=== PATIENT | male | born 1945 | race Caucasian/White ===

== ENCOUNTER 2022-08-25 08:09 | Day surgery (SDC) | payer MEDICARE, BC ==
[2022-08-23 14:14] VITALS: BMI 30.7
[2022-08-25 08:36] VITALS: TEMP 96.9
[2022-08-25] MEDS ORDERED: LACTATED RINGERS 1,000 ML IV SCH (08:39)
[2022-08-25] MEDS ORDERED: LIDOCAINE 1% (10MG/ML) FOR IV START INTRADERMA PRN (08:39)
[2022-08-25 08:58] LABS: Glucose,Whole Blood 107 mg/dL (70-110)
[2022-08-25] MEDS ORDERED: LIDOCAINE 2% INJ 20 MG/ML (2 ML VIAL) ONE (09:58)
[2022-08-25] MEDS ORDERED: PROPOFOL 10 MG/ML 20 ML VIAL IV ONE (09:58)
--- NOTE | 2022-08-25 10:27 | P.PCN ---
Date of Procedure: 08/25/22 Procedure(s) Performed: Brief history: Patient is a pleasant 6-year-old white male scheduled for an elective upper endoscopy as well as colonoscopy as a part of evaluation of epigastric pain, abdominal bloating and chronic diarrhea for the last 3 years duration. Procedure performed: Esophagogastroduodenoscopy with biopsy Colonoscopy with snare polypectomy and tattooing with Elisabeth ink Preoperative diagnosis: Epigastric pain/abdominal bloating Chronic diarrhea Anesthesia: MAC Procedure: After informed consent was obtained from the patient was brought into the endoscopy unit and IV sedation was administered by anesthesia under continuous monitoring. Initially upper endoscopy was done. The Olympus GF 160 video endoscope was inserted inserted into the mouth and esophagus intubated without any difficulty and was gradually advanced into the stomach and duodenum and carefully examined. The bulb and second part of the duodenum appeared normal. Biopsies were done from the duodenum to rule out celiac disease. The scope was then withdrawn into the stomach adequately insufflated with air and upon careful examination the antrum had mild gastritis and biopsies were done from this area. The body, cardia and fundus appeared normal. The scope was then withdrawn into the esophagus. The GE junction was located at 40 cm to the incisors. It appeared regular with no erythema erosions or ulcerations. Rest of the esophagus appeared normal. Patient tolerated the procedure well. At this time the patient continued to remain sedation. Initial digital rectal examination was normal. Olympus CF 160 video colonoscope was then inserted into the rectum and gradually advanced to the cecum without any difficulty. Careful examination was performed as the scope was gradually being withdrawn. The prep was excellent. The cecum, appeared normal. In the proximal ascending colon just above the ileocecal valve there was a 3 cm broad-based polypoid lesion identified which was partially removed by snare polypectomy and because of suspicion for neoplasia I did not perform complete polypectomy. Instead performed tattooing with Elisabeth ink. On a 50% the polyp was removed. The rest of the ascending colon, transverse colon, descending colon, sigmoid colon and rectum appeared normal. Retroflexion was performed in the rectum and no lesions were noted. Patient tolerated the procedure well. Impression: 1. Upper endoscopy revealed mild antral gastritis but no evidence of esophagitis or peptic 2. Colonoscopy revealed 3 cm broad-based ascending colon polypoid lesion status post partial piecemeal snare polypectomy followed by tattooing with Elisabeth ink Recommendations: Findings of this examination were discussed with the patient as well as as family. He was advised to follow with the biopsy results and he will be seen in the office in one week.
[2022-08-25 10:34] VITALS: RESP 16
[2022-08-25 10:53] VITALS: PULSE 69
[2022-08-25 11:15] VITALS: BP 137/85
== END 2022-08-25 11:27 | disposition home or self-care (01) ==
LOC: ORWHC2ENDO 08:09
PROVIDERS: ATTEND Internal Medicine Gastroenterology
DX: K29.50 Unspecified chronic gastritis without bleeding (principal); K63.5 Polyp of colon
CPT/HCPCS: 88305; 45385; 43239; 44404; J2704; J2001

== ENCOUNTER → 2022-09-14 | Outpatient (CLI) | payer MEDICARE, BC ==
[2022-09-14 18:25] LABS: Basophils # (A) 0.05 X 10*3/uL (0.00-0.10); Basophils % (A) 0.8 %; Eosinophils # (A) 0.18 X 10*3/uL (0.04-0.35); HCT 41.1 % (39.6-50.0); HGB 13.5 g/dL (13.0-17.0); Immature Grans, Automated 0.3 %; Lymphocytes # (A) 1.79 X 10*3/uL (0.90-5.00); Lymphocytes % (A) 30.1 %; MCHC 32.8 g/dL (32.0-37.0); MCV 88.4 fL (80.0-97.0); Mean Platelet Volume 10.5 fL (9.5-12.2); Monocytes # (A) 0.52 X 10*3/uL (0.20-1.00); Monocytes % (A) 8.8 %; NRBC Per 100 WBC 0 /100 WBCS (0.0-0.0); Neutrophils # (A) 3.38 X 10*3/uL (1.80-7.70); Platelet Count 212 X 10*3/uL (140-440); RBC 4.65 X 10*6/uL (4.40-5.60); RDW 13.3 % (11.5-14.5); WBC 5.94 X 10*3/uL (4.50-10.00)
[2022-09-14 18:29] LABS: African American GFR (CKD) 68.1 (60.0-200.0); Albumin 4.3 g/dL (3.8-4.9); Albumin/Globulin Ratio 1.54 (1.60-3.17); Anion Gap 9.8 mmol/L (10.00-18.00); BUN/Creat Ratio 17.5 Ratio (12.00-20.00); Calcium 9.3 mg/dL (8.7-10.3); Carbon Dioxide 23.2 mmol/L (20.0-27.5); Globulin 2.8 g/dL (1.6-3.3); Non-African American GFR(CKD) 58.8 (60.0-200.0); Potassium 5.1 mmol/L (3.5-5.5); Total Bilirubin 0.3 mg/dL (0.30-1.20); Total Protein 7.1 g/dL (6.2-8.2)
== END | disposition home or self-care (01) ==
LOC: LABWHC1 12:35
PROVIDERS: ATTEND Surgery Plastic and Reconstructive Surgery
DX: C18.2 Malignant neoplasm of ascending colon (principal); I11.9 Hypertensive heart disease without heart failure
CPT/HCPCS: 36415; 80053; 82378; 85025; 93005

== ENCOUNTER → 2022-10-22 | Outpatient (CLI) | payer MEDICARE, BC ==
[2022-10-22 18:38] LABS: HCT 42.7 % (39.6-50.0); HGB 13.7 g/dL (13.0-17.0); MCH 28.8 pg (27.0-32.0); MCHC 32.1 g/dL (32.0-37.0); MCV 89.7 fL (80.0-97.0); Mean Platelet Volume 10.9 fL (9.5-12.2); NRBC Per 100 WBC 0 /100 WBCS (0.0-0.0); Platelet Count 227 X 10*3/uL (140-440); RBC 4.76 X 10*6/uL (4.40-5.60); RDW 13.6 % (11.5-14.5)
[2022-10-22 18:46] LABS: African American GFR (CKD) 56.6 (60.0-200.0); Albumin 4.6 g/dL (3.8-4.9); Albumin/Globulin Ratio 1.59 (1.60-3.17); Anion Gap 13.8 mmol/L (10.00-18.00); BUN/Creat Ratio 24.86 Ratio (12.00-20.00); Blood Urea Nitrogen 34.8 mg/dL (9.0-27.0); Calcium 9.5 mg/dL (8.7-10.3); Carbon Dioxide 21.1 mmol/L (20.0-27.5); Globulin 2.9 g/dL (1.6-3.3); Non-African American GFR(CKD) 48.8 (60.0-200.0); Potassium 4.5 mmol/L (3.5-5.5); Total Bilirubin 0.4 mg/dL (0.30-1.20); Total Protein 7.4 g/dL (6.2-8.2)
== END | disposition home or self-care (01) ==
LOC: LABWHC1 14:09
PROVIDERS: ATTEND Surgery Plastic and Reconstructive Surgery
DX: C18.2 Malignant neoplasm of ascending colon (principal)
CPT/HCPCS: 36415; 80053; 85027

== ENCOUNTER 2022-10-28 09:49 | Inpatient (IN) | payer MEDICARE, BC ==
--- NOTE | 2022-10-28 06:09 | P.GSHP ---
History of Present Illness H&P Date: 10/28/22 CHIEF COMPLAINT: Colon cancer HISTORY OF PRESENT ILLNESS: The patient is a 77-year-old male with recently diagnosed with colon cancer in the past 2 months. He underwent metastatic work- up. He presents for surgical colon resection with robotic assisted approach and endoscopic management with tattoo. PAST MEDICAL HISTORY: Please see list. PAST SURGICAL HISTORY: Please see list. MEDICATIONS: Please see list. ALLERGIES: Please see list. SOCIAL HISTORY: No illicit drug use FAMILY HISTORY: No reports of Crohn disease or ulcerative colitis. REVIEW OF ORGAN SYSTEMS: CONSTITUTIONAL: Denies any fever or chills. HEENT: Denies any trouble with vision or nosebleeds. No difficulty swallowing. LYMPHATIC: The patient denies any lumps and bumps around the neck. ENDOCRINE: Denies any thyroid disorders. Has blood sugar glucose intolerance. RESPIRATORY: Denies pneumonia. Denies any troubles with breathing or dyspnea on exertion. CARDIOVASCULAR: Denies any chest pain, palpitations, or recent heart attacks. Saw inspector and cleared for surgery. GASTROINTESTINAL: As above. GENITOURINARY: Has increased urinary frequency. MUSCULOSKELETAL: Has back pain, stiffness, joint arthritis. NEUROLOGIC: Denies any numbness or tingling along the distal extremities. No seizure disorders or headaches. PSYCHIATRIC: Denies depression or suidical ideation. HEMATOLOGIC: Denies any abnormal bleeding or bruising. PHYSICAL EXAM: VITAL SIGNS: Stable GENERAL: Well-developed pleasant in no acute distress. HEENT: No scleral icterus. Extraocular movements grossly intact. Moist buccal mucosa. NECK: Supple without lymphadenopathy. CHEST: Unlabored respirations. Equal bilateral excursions. CARDIOVASCULAR: Regular rate and rhythm. Distal 2+ pulses. ABDOMEN: Soft, nontender, nondistended. MUSCULOSKELETAL: No clubbing, cyanosis, or edema. NERUO: Regular 2-12 grossly intact. PSYCH: Alert and oriented to person place and time. LABS: Reviewed. Hgb normal. CEA normal. ASSESSMENT: 1. Colon cancer, ascending. PLAN: 1. Benefits and risks of surgical intervention right hemicolectomy reviewed in detail. Robotic-assisted approach was also described. 2. Enhanced colon recovery program initiated. 3. DVT prophylaxis. 4. Antibiotic prophylaxis. 5. Endoscopic management via colonoscopy with tattoo pre-operatively described. 6. He is elevated risk with diabetes, heart disease, recent use of NSAIDs and tumeric that increases risk of bleeding sandy-operative. Past Medical History Past Medical History: Cancer, Diabetes Mellitus, Hyperlipidemia, Hypertension, Osteoarthritis (OA) Additional Past Medical History / Comment(s): GOUT, HX COLON POLYPS.,cancerous LOOSE STOOLS. History of Any Multi-Drug Resistant Organisms: None Reported Past Surgical History: Adenoidectomy, Joint Replacement, Tonsillectomy Additional Past Surgical History / Comment(s): TOTAL RIGHT KNEE, NASAL SURGERY, FISSURE AND FISTULA SURGERY X2, CARPAL TUNNEL X3., COLONOSCOPY. Past Anesthesia/Blood Transfusion Reactions: No Reported Reaction Smoking Status: Former smoker - Past Family History Brother(s) Family Medical History: Cancer Medications and Allergies Home Medications Medication Instructions Recorded Confirmed Type Atorvastatin [Lipitor] 20 mg PO DAILY 08/23/22 10/26/22 History Black Srivastava 1,000 mg PO DAILY 08/23/22 10/26/22 History Celecoxib [CeleBREX] 200 mg PO DAILY 08/23/22 10/26/22 History Cholecalciferol [Vitamin D3 (25 50 mcg PO DAILY 08/23/22 10/26/22 History Mcg = 1000 Iu)] Gabapentin 600 mg PO DAILY 08/23/22 10/26/22 History Turmeric Root Extract [Turmeric] 1,000 mg PO DAILY 08/23/22 10/26/22 History amLODIPine [Norvasc] 5 mg PO DAILY 08/23/22 10/26/22 History lisinopriL 40 mg PO DAILY 08/23/22 10/26/22 History sitaGLIPtin [Januvia] 100 mg PO DAILY 08/23/22 10/26/22 History Gluc/Chond/MSM/D3/Hyal/Ramy Bor 1 tab PO DAILY 10/26/22 10/26/22 History [Move Free Plus MSM-Vit D3 Tab] Allergies Allergy/AdvReac Type Severity Reaction Status Date / Time tetracycline Allergy Unknown Unknown Verified 10/26/22 10:20 Childhood
[~2022-10-28 09:49] MED LIST: Antibiotics per Pharmacy 1 EACH MISC MISCELLANE PRN; PEG 3350 (420 GM/BTL) + LYTES 4,000 ML BOTTLE PO ONE
[2022-10-28] MEDS: LACTATED RINGERS 1,000 ML IV SCH (10:12)
[2022-10-28] MEDS ORDERED: PROPOFOL 10 MG/ML 20 ML VIAL IV ONE (10:46)
[2022-10-28 10:52] LABS: Basophils % (A) 1 %; Eosinophils # (A) 0.1 k/uL (0-0.7); Eosinophils % (A) 2 %; HCT 43.5 % (39.0-53.0); HGB 14.7 gm/dL (13.0-17.5); Lymphocytes # (A) 1.9 k/uL (1.0-4.8); Lymphocytes % (A) 30 %; MCHC 33.8 g/dL (31.0-37.0); MCV 88.7 fL (80.0-100.0); Monocytes # (A) 0.4 k/uL (0-1.0); Monocytes % (A) 6 %; Neutrophils # (A) 3.6 k/uL (1.3-7.7); Neutrophils % (A) 58 %; Platelet Count 216 k/uL (150-450); RDW 13.4 % (11.5-15.5); WBC 6.2 k/uL (3.8-10.6)
[2022-10-28 11:02] LABS: Prothrombin Time 10.3 sec (9.0-12.0)
[2022-10-28 11:18] LABS: Albumin 4.6 g/dL (3.5-5.0); Calcium 9.2 mg/dL (8.4-10.2); Potassium 4.4 mmol/L (3.5-5.1); Total Bilirubin 0.6 mg/dL (0.2-1.3); Total Protein 7.6 g/dL (6.3-8.2)
[2022-10-28] MEDS ORDERED: LACTATED RINGERS 1,000 ML IV ONE (11:38)
[2022-10-28] MEDS: metroNIDAZOLE 500 MG TAB PO SCH ×2 (13:46→14:59)
[2022-10-28] MEDS: NEOMYCIN 500 MG TAB PO SCH ×2 (13:46→14:59)
[2022-10-28] MEDS ORDERED: metroNIDAZOLE 500 MG TAB PO SCH (15:00)
[2022-10-28] MEDS ORDERED: SODIUM CHLORIDE 0.9% 2,000 ML IV ONE (15:15)
[2022-10-28] MEDS ORDERED: LACTULOSE 20 GM/30 ML CUP PO ONE (15:50)
[2022-10-28] MEDS ORDERED: MAGNESIUM HYDROXIDE 2,400 MG/10 ML CUP PO STA (15:51)
--- NOTE | 2022-10-28 15:58 | P.PCN ---
Date of Procedure: 10/28/22 Description of Procedure: PREOPERATIVE DIAGNOSIS: Colon cancer POSTOPERATIVE DIAGNOSIS: Colon cancer Ascending colon polyp Poor prep OPERATION: Colonoscopy to the ileocecal valve and appendiceal orifice, cecum Colonoscopy with hot snare polypectomy Colonoscopy with submucosal injection of Elisabeth ink, 5 mL SURGEON: Tamra Fox MD. ANESTHESIA: MAC. INDICATIONS: The patient is an 77-year-old male who presents with recent diagnosis of colon cancer. He presents for endoscopic marking and assessment robotic colectomy. Benefits and risks were described and informed consent was obtained. DESCRIPTION OF PROCEDURE: The patient had undergone Sutab prep. The patient had been brought into the operating room and laid in the left lateral decubitus position. After adequate intravenous sedation, the rectum was examined with 2% lidocaine jelly. The prostate was unremarkable. External hemorrhoids were encountered. the prostate was unremarkable. The rectal tone was within normal limits. No lesions were palpated in the rectal vault. An Olympus colonoscope was advanced until the cecum, ileocecal valve and appendiceal orifice were clearly viewed. The prep was poor with semisolid stool throughout. Colonic polyp 2 cm was identified at the cecum proximal to the ileocecal valve. Snare technique was performed with incomplete resection and injection of Elisabeth 8, 5 mL. Focal colitis cannot be excluded due to extremely poor prep. Retroflexion of the scope demonstrated grade 2 internal hemorrhoids without active bleeding or inflammation. The colon was desufflated. The patient had tolerated the procedure well. Withdrawal time was over 6 minutes. FINDINGS: Aronchick preparation quality scale 4 (1-5) Internal hemorrhoids, grade 2 External hemorrhoids, grade 2 No arteriovenous malformations cannot be excluded due to poor prep Sigmoid diverticulosis cannot be excluded due to poor prep Removal of 1 polyp: - Snare polypectomy cecum, 20 mm tubulovillous adenoma, with incomplete resection - Injection of Elisabeth ink 5 mL some mucosal at cecum at incomplete resection site Focal colitis cannot be excluded due to poor prep RECOMMENDATIONS: With pathology positive for colon cancer, colon resection described. Recommend extended bowel prep
--- NOTE | 2022-10-28 15:58 | P.PN ---
Progress Note - Text Progress Note Date: 10/28/22 Patient revisited and confirms that he took Imodium instead of bowel prep. As a result, patient had very poor bowel prep. Addition of lactulose, milk of magnesia and GoLYTELY prep for colon resection tomorrow. Oral neomycin and Flagyl started.
[2022-10-28] MEDS ORDERED: TAMSULOSIN 0.4 MG CAP.ER.24H PO STA (15:59)
[2022-10-28] MEDS ORDERED: TEMAZEPAM 15 MG CAP PO ONE (21:00)
[2022-10-28] MEDS: SODIUM CHLORIDE 0.9% 1,000 ML IV SCH (22:39)
[2022-10-28] MEDS ORDERED: NEOMYCIN 500 MG TAB PO ONE (23:00)
[2022-10-28] MEDS ORDERED: metroNIDAZOLE 500 MG TAB PO ONE (23:00)
[2022-10-29] MEDS: SODIUM CHLORIDE 0.9% 1,000 ML IV SCH ×4 (02:49→22:30)
[2022-10-29] MEDS ORDERED: HEPARIN SODIUM,PORCINE/PF 5,000 UNIT/0.5 ML SYRINGE SQ PRN (06:09)
[2022-10-29 06:14] LABS: Basophils % (A) 1 %; Eosinophils # (A) 0.1 k/uL (0-0.7); Eosinophils % (A) 2 %; HCT 40.2 % (39.0-53.0); HGB 13.3 gm/dL (13.0-17.5); Lymphocytes # (A) 1.3 k/uL (1.0-4.8); Lymphocytes % (A) 28 %; MCH 29.6 pg (25.0-35.0); MCHC 33.1 g/dL (31.0-37.0); MCV 89.5 fL (80.0-100.0); Mean Platelet Volume 8.3; Monocytes # (A) 0.3 k/uL (0-1.0); Monocytes % (A) 6 %; Neutrophils # (A) 2.6 k/uL (1.3-7.7); Neutrophils % (A) 59 %; Platelet Count 170 k/uL (150-450); RBC 4.49 m/uL (4.30-5.90); RDW 13.8 % (11.5-15.5); WBC 4.5 k/uL (3.8-10.6)
[2022-10-29 06:29] LABS: ALT 21 U/L (4-49); AST 22 U/L (17-59); African American GFR (CKD) 83 (>60 ml/min/1.73 sqM); Albumin 3.4 g/dL (3.5-5.0); Albumin/Globulin Ratio 1.4; Alkaline Phosphatase 43 U/L (38-126); Anion Gap 5 mmol/L; Blood Urea Nitrogen 9 mg/dL (9-20); Calcium 8.3 mg/dL (8.4-10.2); Carbon Dioxide 21 mmol/L (22-30); Chloride 115 mmol/L (98-107); Globulin 2.5 g/dL; Glucose 90 mg/dL (74-99); Non-African American GFR(CKD) 72 (>60 ml/min/1.73 sqM); Potassium 4.4 mmol/L (3.5-5.1); Sodium 141 mmol/L (137-145); Total Bilirubin 0.4 mg/dL (0.2-1.3); Total Protein 5.9 g/dL (6.3-8.2)
[2022-10-29] MEDS ORDERED: ALVIMOPAN 12 MG CAPSULE PO PRN (07:00)
[2022-10-29] MEDS ORDERED: IOPAMIDOL CONTRAST (ORAL USE) VIAL PO PRN (07:00)
[2022-10-29] MEDS ORDERED: ACETAMINOPHEN TAB 500 MG TAB PO PRN (07:00)
[2022-10-29] MEDS ORDERED: metroNIDAZOLE-NS PMX 500 MG in SALINE 1 100ML.BAG IVPB ONE ×2 (07:00→17:30)
[2022-10-29] MEDS: LINAGLIPTIN 5 MG TABLET PO SCH (08:55)
[2022-10-29] MEDS: amLODIPine 5 MG TAB PO SCH (08:55)
[2022-10-29] MEDS: GABAPENTIN 300 MG CAP PO SCH (08:55)
[2022-10-29] MEDS: lisinopriL 20 MG TAB PO SCH (08:55)
[2022-10-29] MEDS: LACTATED RINGERS 1,000 ML IV SCH (10:43)
--- NOTE | 2022-10-29 10:52 | CT ---
EXAMINATION TYPE: CT abdomen pelvis w con CT DLP: 1089.1 mGycm, Automated exposure control for dose reduction was used. DATE OF EXAM: 10/29/2022 10:30 AM COMPARISON: None CLINICAL INDICATION:Male, 77 years old with history of Abdominal pain, colon cancer; Colon CA TECHNIQUE: Standard CT of the abdomen and pelvis following the administration of 70 cc of Isovue 30 0 IV contrast material. Coronal and sagittal reformats were performed. FINDINGS: LOWER CHEST: 3 mm right lower lobe subpleural pulmonary nodule (series 4, image 14). ABDOMEN LIVER: Unremarkable GALLBLADDER AND BILE DUCTS: Unremarkable. PANCREAS: Unremarkable. SPLEEN: Unremarkable. ADRENAL GLANDS: Unremarkable. KIDNEYS AND URETERS: No evidence of hydronephrosis or renal calculus. The kidneys enhance symmetrical ly without suspicious focal lesion. Circumaortic left renal vein. PELVIS BLADDER: Incompletely distended but grossly unremarkable. REPRODUCTIVE: Unremarkable. ABDOMEN & PELVIS STOMACH AND BOWEL: Stomach and duodenum are unremarkable. No focal wall thickening or surrounding inf lammatory changes. No significant diverticulosis. Evaluation is limited due to lack of oral contrast. No evidence of bowel obstruction. The appendix is not visualized however there is no significant inf lammatory changes within the right lower quadrant. PERITONEUM: No evidence of pneumoperitoneum. Trace free fluid in the pelvis. VASCULATURE: Mild atherosclerotic calcifications are present throughout the abdominal aorta and its b ranches. No evidence of aortic aneurysm. MUSCULOSKELETAL: No acute osseous abnormalities. There are no aggressive osseous lesion. Levoscolioti c curvature of the lumbar spine. Grade 1/2 anterolisthesis of L4 on L5 with bilateral pars defects. M ultilevel degenerative changes of the visualized spine. LYMPH NODES: No gross evidence for lymphadenopathy. SOFT TISSUE/ABDOMINAL WALL: Small fat filled umbilical hernia. Mild bilateral facet of the normal her nias. IMPRESSION: 1. Nonspecific trace free fluid in the pelvis otherwise no acute process. 2. Reported colon cancer is not identifiable on this examination. No definitive focal wall thickening or surrounding inflammatory changes. Evaluation is limited due to lack of IV contrast. 3. Subpleural 3 mm right lower lobe pulmonary nodule. 4. Grade 1/2 anterolisthesis of L4 on L5 with bilateral pars defects.
--- NOTE | 2022-10-29 13:47 | P.PN ---
Subjective Progress Note Date: 10/29/22 CHIEF COMPLAINT: Colon cancer HISTORY OF PRESENT ILLNESS: The patient is a 77-year-old male recently diagnosed with ascending colon cancer. He underwent bowel prep. He feels much better today. Reports his bowel habits are now clear versus poor prep yesterday. ROS: No reports of nausea and vomiting. No fevers or chills. No new chest pain. No productive sputum PHYSICAL EXAM: VITAL SIGNS: Reviewed CONSTITUTIONAL: Well developed and in no acute distress. EYES: Conjuctivae without sclera icterus. Extraocular movements grossly intact. HEAD, EARS, NOSE, THROAT: Moist buccal mucosa. Head is atraumatic, normocephalic. Hears conversational speech. No nasal drainage. RESPIRATORY: Non-labored respirations and equal bilateral excursions. CARDIOVASCULAR: Palpable 2+ radial pulses. ABDOMEN: No peritonitis MUSCULOSKELETAL: No gross deformity of the lower extremities noted. No clubbing. No cyanosis. SKIN: Good skin turgor. Well perfused. NEUROLOGIC: Cranial nerves II through XII grossly intact. No focal or lateralizing signs. PSYCH: Appropriate affect. Alert and oriented to person, place and time. CLINICAL LABS: Reviewed. CBC within normal limits. ASSESSMENT: 1. Ascending colon cancer PLAN: 1. CT of the abdomen and pelvis ordered for metastatic workup for colon cancer. 2. Overall, prep improved for right colectomy. 3. Surgery including postoperative recovery reviewed. Objective - Vital Signs Vital signs: Vital Signs Temp 97.8 F 10/29/22 05:00 Pulse 71 10/29/22 08:59 Resp 16 10/29/22 05:00 BP 147/81 10/29/22 08:59 Pulse Ox 97 10/29/22 05:00 FiO2 Intake & Output 10/28/22 10/29/22 10/29/22 18:59 06:59 18:59 Intake Total 1200 590 Balance 1200 590 Weight 95 kg Intake: IV 1200 Oral 590 Other: Voiding Method Toilet # Voids 3 # Bowel Movements 2 - Labs CBC & Chem 7: 10/29/22 05:53 10/29/22 05:53 Labs: Abnormal Lab Results - Last 24 Hours (Table) 10/28/22 10/29/22 Range/Units 10:25 05:53 Chloride 109 H 115 H (98-107) mmol/L Carbon Dioxide 21 L 21 L (22-30) mmol/L Calcium 8.3 L (8.4-10.2) mg/dL Total Protein 5.9 L (6.3-8.2) g/dL Albumin 3.4 L (3.5-5.0) g/dL
[2022-10-29] MEDS ORDERED: IV FLUID CONTINUATION 1,000 ML IV ONE (14:31)
[2022-10-29 14:35] LABS: Glucose,Whole Blood 90 mg/dL (70-110)
[2022-10-29] MEDS: ONDANSETRON 4 MG/2 ML VIAL IVP PRN (14:36)
--- NOTE | 2022-10-29 15:10 | P.ANPRN ---
Procedure Note - Anesthesia - Nerve Block Performed Bilateral Erector Spinae Time Out Performed: Yes (15:00) Date of Procedure: 10/29/22 Procedure Start Time: 15:00 Procedure Stop Time: 15:07 Location of Patient: PreOp Indication: Acute Post-Operative Pain, Requested by Surgeon (Dr Fox) Sedation Type: Sedate with meaningful contact maintained Preparation: Sterile Prep Position: Prone Catheter: None Needle Types: Pajunk Needle Gauge: 21 Ultrasound used to visualize needle placement: Yes Ultrasound used to observe medication spread: Yes Injectate: 0.5% Ropivacaine (see comment for volume) (18cc +Decadron 4mg each side) Blood Aspirated: No Pain Paresthesia on Injection Noted: No Resistance on Injection: Normal Image Stored and Saved: Yes Events: Uneventful and Well Tolerated
[2022-10-29] MEDS ORDERED: MIDAZOLAM 2 MG/2 ML VIAL IVP ONE (15:17)
[2022-10-29] MEDS ORDERED: BUPIVACAIN-EPI 0.25%-1:200,000 30 ML VIAL SQ ONE ×2 (16:32→17:06)
[2022-10-29] MEDS ORDERED: SODIUM CHLORIDE 0.9% 50 ML with ceFAZolin 2,000 MG IV ONE ×2 (16:35)
[2022-10-29] MEDS ORDERED: LACTATED RINGERS 1,000 ML IV ONE ×2 (17:34→19:32)
[2022-10-29 20:15] LABS: Glucose,Whole Blood 146 mg/dL (70-110)
[2022-10-29] MEDS ORDERED: BENZOCAINE/MENTHOL LOZENG 1 EACH LOZENGE MUCOUS MEM PRN (20:30)
[2022-10-29] MEDS ORDERED: METOCLOPRAMIDE 5 MG/ML 2 ML VIAL IVP PRN (20:30)
[2022-10-29] MEDS ORDERED: HYDROmorphone 1 MG/ML 1 ML SYRINGE IVP PRN (20:30)
[2022-10-29] MEDS ORDERED: SODIUM CHLORIDE 0.9% 1,000 ML IV ONE (20:34)
[2022-10-29] MEDS ORDERED: NALOXONE 0.4 MG/ML 1 ML VIAL IV PRN (20:37)
--- NOTE | 2022-10-29 20:37 | P.OP ---
Date of Procedure: 10/29/22 Description of Procedure: SURGEON: MERCY VERNON MD Preoperative Diagnosis: 1. Malignant colon polyp at ascending colon Postoperative Diagnosis: 1. Malignant colon polyp at ileocecal valve Procedure(s) Performed: Robot-assisted daVinci Xi laparoscopic ileocolectomy with right hemicolectomy Anesthesia: GETA, local, regional Estimated Blood Loss (ml): 10 Pathology: other (Right colon) Condition: stable SPECIMENS REMOVED: terminal ileum, appendix, and right colon en bloc. COMPLICATIONS: None. Disposition: floor Operative Findings: 1. Tumor involving the cecum including ileocecal valve with proximal resection 5 cm distal section 5 cm 2. Anastomosis proximal to the hepatic flexure 3. No evidence of peritoneal metastatic deposits or liver involvement 4. Incision is made along the upper abdomen with specimen extraction had left upper quadrant INDICATIONS: The patient is a 77-year-old male with personal history of malignant colorectal polyp on the ileocecal valve. Surgical intervention with colon resection was described in detail. Benefits and risks, including infection, open surgery possibility for additional surgery was discussed at length. Informed consent was obtained. All questions of the patient and family were answered. DESCRIPTION: Earlier the patient had undergone a bowel prep using the enhanced colon recovery program. The patient was transferred to the operating room and placed in supine position. After general anesthetic, a miles catheter was placed. The abdomen was then prepped and draped in standard sterile fashion as Ioban was placed along the abdomen to minimize any contamination of skin floor. After a timeout protocol was performed, attention was then brought to the left upper quadrant whereby a 0 degree 5 mm laparoscopic trocar entry was performed. The abdominal cavity was entered and insufflated to 15 mmHg pressure, which he tolerated well. Diagnostic laparoscopy demonstrated no injury to bowel, viscera or mesentery. No metastatic or peritoneal deposits were identified. The liver was unremarkable. The tumor was identified along the cecum with hypervascularity. Next a robotic 8-mm trocar was placed along the right lateral abdominal wall, 15-cm superior from the pelvis. A 8 mm port was placed along the right upper quadrant and another 8-mm port along the epigastrium. Ports were placed 8 cm apart from each other including 15-20 cm away from the target anatomy of the right pelvis. The 5-mm port was exchanged for a 12 mm robotic port. The patient was then placed in Trendelenburg position, at least 14. The robotic da Sean XI system was primed and docked from the left side of the patient. Using atraumatic graspers and vessel sealer, the robotic system was docked and primed as described. Instruments were interchanged by the assistant professor surgical technology including scissors, needle buggy driver, robotic stapler and vessel sealer. Next, attention was brought to identify the cecum. A stay suture using 0 silk was placed along the anterior serosa of the ascending colon including along the terminal ileum. The appendix was identified and used as a handle during the case. The terminal ileum and ascending colon mesentery was mobilized using a vessel sealer whereby the colon was marked and tagged. Using robot stapler 45 mm white load, the distal ileum was divided 5 cm proximal to the ileocecal valve. The mesentery of the ascending colon was mobilized towards the midline using a vessel sealer. Next, the ascending colon was divid ed using the robotic stapler 45 mm blue loads. The rest of the colon mesentery was mobilized using vessel sealer including using blunt dissection. The vascular pedicle of the ileocolic artery was controlled using 2 large PLASTIC clips distally and then divided proximally using a vessel sealer. The proximal colon and distal ileum was brought in a side to side anastomotic fashion after placing interrupted sutures along the proposed gabby-lumen using 3-0 silk. A colotomy and enterotomy was prepared along both limbs along the antimesenteric border. The 8 mm trocar along the right upper quadrant was exchanged for a 12 mm port for stapler. Next, 45 mm blue stapler loads were fired to create the gabby-lumen. The gabby-lumen was reapproximated using 3-0 silk followed by 45 mm blue load for closure of the enterostomy. All needles were removed from the abdominal cavity. The robot was undocked. I re-scrubbed into the case. Via the 12 mm port of the left upper quadrant, the right colon was removed using a 15-mm Endo Catch bag after widening the skin incision to 3-cm. All sponges were removed from the abdominal cavity. No contamination had occurred throughout this portion of the case. The fascial defect was oversewn using 0 Vicryl and Jagjit's. Next all pneumoperitoneum was evacuated from the abdominal cavity. The 8-mm trocar sites were reapproximated using 4-0 Monocryl in an interrupted subcuticular fashion. Local anesthetic was infiltrated to all wounds for postop analgesia. All incisions were also cleansed with diluted hydrogen peroxide. An Optifoam surgical dressing was placed over the left upper quadrant incision of the colon extraction site. Dermabond was applied to the rest of the skin incisions. The patient had tolerated the procedure well. The patient was extubated successfully. Intraoperative photos were reviewed with the patient's family who were overall pleased with the level of care. The patient was transferred to the postanesthesia care unit in stable condition.
[2022-10-29] MEDS: D5-0.45% NACL WITH KCL 20MEQ/L 1,000 ML IV SCH (21:21)
[2022-10-29] MEDS: HEPARIN SODIUM,PORCINE/PF 5,000 UNIT/0.5 ML SYRINGE SQ SCH (21:22)
[2022-10-29] MEDS: fentaNYL PCA 500 MCG/50 ML BAG IV PRN (21:46)
[2022-10-29] MEDS ORDERED: SIMETHICONE 40 MG/0.6 ML DROPS 2,000 MG/30 ML BOTTLE PO SCH (22:00)
[2022-10-29] MEDS: metroNIDAZOLE-NS PMX 500 MG in SALINE 1 100ML.BAG IVPB SCH (23:56)
[2022-10-30] MEDS: D5-0.45% NACL WITH KCL 20MEQ/L 1,000 ML IV SCH ×3 (05:24→23:39)
[2022-10-30] MEDS: metroNIDAZOLE-NS PMX 500 MG in SALINE 1 100ML.BAG IVPB SCH ×4 (05:26→23:39)
[2022-10-30] MEDS: LACTATED RINGERS 1,000 ML IV SCH (06:34)
[2022-10-30] MEDS: SODIUM CHLORIDE 0.9% 1,000 ML IV SCH (07:46)
[2022-10-30] MEDS: GABAPENTIN 300 MG CAP PO SCH (08:07)
[2022-10-30] MEDS: ALVIMOPAN 12 MG CAPSULE PO SCH ×2 (08:07→21:06)
[2022-10-30] MEDS: TAMSULOSIN 0.4 MG CAP.ER.24H PO SCH (08:07)
[2022-10-30] MEDS: amLODIPine 5 MG TAB PO SCH (08:07)
[2022-10-30] MEDS: LINAGLIPTIN 5 MG TABLET PO SCH (08:08)
[2022-10-30] MEDS: lisinopriL 20 MG TAB PO SCH (08:08)
[2022-10-30] MEDS: HEPARIN SODIUM,PORCINE/PF 5,000 UNIT/0.5 ML SYRINGE SQ SCH ×2 (08:08→21:06)
[2022-10-30] MEDS: SIMETHICONE 40 MG/0.6 ML DROPS 2,000 MG/30 ML BOTTLE PO SCH ×4 (09:21→23:40)
[2022-10-30 09:24] LABS: Basophils # (A) 0.01 X 10*3/uL (0.00-0.10); Basophils % (A) 0.1 %; Eosinophils # (A) 0 X 10*3/uL (0.04-0.35); Eosinophils % (A) 0 %; HCT 38.4 % (39.6-50.0); HGB 12.3 g/dL (13.0-17.0); Immature Grans, Automated 0.2 %; Lymphocytes # (A) 0.73 X 10*3/uL (0.90-5.00); Lymphocytes % (A) 8.7 %; MCH 29.6 pg (27.0-32.0); MCV 92.5 fL (80.0-97.0); Mean Platelet Volume 10.9 fL (9.5-12.2); Monocytes # (A) 0.54 X 10*3/uL (0.20-1.00); Monocytes % (A) 6.4 %; NRBC Per 100 WBC 0 /100 WBCS (0.0-0.0); Neutrophils # (A) 7.09 X 10*3/uL (1.80-7.70); Neutrophils % (A) 84.6 %; Platelet Count 185 X 10*3/uL (140-440); RBC 4.15 X 10*6/uL (4.40-5.60); RDW 13.7 % (11.5-14.5); WBC 8.39 X 10*3/uL (4.50-10.00)
[2022-10-30 10:53] LABS: African American GFR (CKD) 75.7 (60.0-200.0); Anion Gap 9.2 mmol/L (10.00-18.00); BUN/Creat Ratio 9.36 Ratio (12.00-20.00); Blood Urea Nitrogen 10.3 mg/dL (9.0-27.0); Calcium 8.2 mg/dL (8.7-10.3); Carbon Dioxide 19.8 mmol/L (20.0-27.5); Non-African American GFR(CKD) 65.3 (60.0-200.0); Potassium 4.8 mmol/L (3.5-5.5)
--- NOTE | 2022-10-30 11:14 | P.PN ---
Progress Note - Text Progress Note Date: 10/30/22 Patient is resting comfortably in his bed. He denies any significant abdominal pain. On exam vital signs are stable. Abdomen soft. Incision sites are clean dry tach. The prep patient has had no significant bowel function. Patient will will continue supportive care until bowel function returns.
[2022-10-30] MEDS: fentaNYL PCA 500 MCG/50 ML BAG IV PRN (11:16)
[2022-10-30] MEDS ORDERED: DEXTROSE 50% SYRINGE 50 ML IVP PRN ×2 (11:20)
--- NOTE | 2022-10-30 11:28 | P.CONS ---
History of Present Illness - Reason for Consult Consult date: 10/30/22 med management - History of Present Illness Patient is a 77-year-old male with history of recently diagnosed colon cancer, hypertension, dyslipidemia, diabetes presenting for elective colon surgery. He is status post ileocolectomy and right hemicolectomy. [facility] [place][note 2] has been consulted for medical management. Currently he denies any chest pain, shortness of breath, palpitations, lightheadedness. He has minimal abdominal pain around the incision site. He denies having any bowel movements or passing gas at the moment. He has not gotten out of bed, but sat at the edge of the bed today. He has a White catheter in place. Patient seen and examined at bedside. Pertinent positives and negatives as discussed in HPI, a complete review of systems was performed and all other systems are negative. Vital signs reviewed General: nontoxic, no distress, appears at stated age Derm: warm, dry Head: atraumatic, normocephalic, symmetric Eyes: EOMI, no lid lag, anicteric sclera, pupils equal round reactive to light ENT: Nose and ears atraumatic Neck: No thyromegaly, supple Mouth: no lip lesion, mucus membranes moist Cardiovascular: S1S2 reg, no murmur, no edema Lungs: clear to auscultation bilateral, no rhonchi, no rales, no wheeze, no accessory muscle use Abdominal: soft, nontender to palpation, no guarding, no appreciable organomegaly, his abdominal dressing, clean, dry, intact Ext: no gross muscle atrophy, muscle strength muscle strength 5 out of 5 in all 4 extremities, no contractures Neuro: CN II-XII grossly intact Psych: Alert, oriented, appropriate affect Assessment/Plan: Colon cancer Status post resection -DVT prophylaxis and pain management per surgery -Currently on clear liquids Chronic medical problems: Hypertension Dyslipidemia Diabetes - sliding scale insulin -Continue home medications Labs reviewed and stable. Thank you for allowing us to participate in the care of this pleasant patient. Do not hesitate to contact us with questions. Someone can be reached from the [facility] hospitalist group all hours of the day at [phone] or via [employer]. Past Medical History Past Medical History: Cancer, Diabetes Mellitus, Hyperlipidemia, Hypertension, Osteoarthritis (OA) Additional Past Medical History / Comment(s): GOUT, HX COLON POLYPS.,cancerous LOOSE STOOLS. History of Any Multi-Drug Resistant Organisms: None Reported Past Surgical History: Adenoidectomy, Joint Replacement, Tonsillectomy Additional Past Surgical History / Comment(s): TOTAL RIGHT KNEE, NASAL SURGERY, FISSURE AND FISTULA SURGERY X2, CARPAL TUNNEL X3., COLONOSCOPY. Past Anesthesia/Blood Transfusion Reactions: No Reported Reaction Smoking Status: Former smoker - Past Family History Brother(s) Family Medical History: Cancer Medications and Allergies Home Medications Medication Instructions Recorded Confirmed Type Atorvastatin [Lipitor] 20 mg PO DAILY 08/23/22 10/28/22 History Black Srivastava 1,000 mg PO DAILY 08/23/22 10/28/22 History Celecoxib [CeleBREX] 200 mg PO DAILY 08/23/22 10/28/22 History Cholecalciferol [Vitamin D3 (25 50 mcg PO DAILY 08/23/22 10/28/22 History Mcg = 1000 Iu)] Gabapentin 600 mg PO DAILY 08/23/22 10/28/22 History Turmeric Root Extract [Turmeric] 1,000 mg PO DAILY 08/23/22 10/28/22 History amLODIPine [Norvasc] 5 mg PO DAILY 08/23/22 10/28/22 History lisinopriL 40 mg PO DAILY 08/23/22 10/28/22 History sitaGLIPtin [Januvia] 100 mg PO DAILY 08/23/22 10/28/22 History Gluc/Chond/MSM/D3/Hyal/Ramy Bor 1 tab PO DAILY 10/26/22 10/28/22 History [Move Free Plus MSM-Vit D3 Tab] Allergies Allergy/AdvReac Type Severity Reaction Status Date / Time tetracycline Allergy Unknown Unknown Verified 10/28/22 10:30 Childhood Physical Exam Vitals: Vital Signs Temp Pulse Pulse Resp BP BP Pulse Ox 10/30/22 08:36 98 10/30/22 05:00 97.8 F 88 16 128/73 97 10/30/22 00:00 95 129/67 10/29/22 22:30 82 121/66 10/29/22 22:00 88 128/69 10/29/22 21:45 95 123/68 10/29/22 21:30 80 139/67 10/29/22 21:15 90 146/79 10/29/22 21:00 86 16 146/75 95 10/29/22 20:51 86 16 117/57 97 10/29/22 20:37 93 16 163/72 98 10/29/22 20:22 92 16 130/65 97 10/29/22 20:07 98.4 F 99 18 165/71 98 10/29/22 20:00 16 10/29/22 14:31 79 16 145/82 97 10/29/22 12:47 97.9 F 75 16 124/75 98 Intake and Output 10/29/22 10/30/22 10/30/22 22:59 06:59 14:59 Intake Total 2330 2839 Output Total 260 600 Balance 2070 2239 Intake: IV 2300 Intake, IV Titration 2249 Amount D5-0.45% NaCl with KCl 1000 20Meq/l 1,000 ml @ 125 mls/hr IV .Q8H [facility] Rx#: [id number] Sodium Chloride 0.9% 1, 999 000 ml @ 999 mls/hr IV . Q1H1M ONE Rx#:[id number] ceFAZolin 2 gm In Sodium 50 Chloride 0.9% 50 ml @ 100 mls/hr IVPB Q8HR [facility] Rx# :[id number] metroNIDAZOLE-NS PMX 500 200 mg In Saline 1 100ml.bag @ 100 mls/hr IVPB Q6HR [facility] Rx#:[id number] Oral 30 590 Output: Urine 250 600 Estimated Blood Loss 10 Other: Voiding Method Toilet Indwelling Catheter # Bowel Movements 2 Results CBC & Chem 7: 10/30/22 05:22 10/30/22 05:22 Labs: Abnormal Lab Results - Last 24 Hours (Table) 10/29/22 10/30/22 10/30/22 Range/Units 20:12 05:22 05:22 RBC 4.15 L (4.40-5.60) X 10*6/uL Hgb 12.3 L (13.0-17.0) g/dL Hct 38.4 L (39.6-50.0) % Lymphocytes # 0.73 L (0.90-5.00) X 10*3/uL Eosinophils # 0 L (0.04-0.35) X 10*3/uL Carbon Dioxide 19.8 L (20.0-27.5) mmol/L Anion Gap 9.20 L (10.00-18.00) mmol/L BUN/Creatinine Ratio 9.36 L (12.00-20.00) Ratio Glucose 192 H (70-110) mg/dL POC Glucose (mg/dL) 146 H (70-110) mg/dL Calcium 8.2 L (8.7-10.3) mg/dL
[2022-10-30 12:06] LABS: Glucose,Whole Blood 218 mg/dL (70-110)
[2022-10-30] MEDS: INSULIN ASPART (NovoLOG) 100 UNIT/ML VIAL SQ SCH ×3 (13:03→21:06)
[2022-10-30 17:13] LABS: Glucose,Whole Blood 221 mg/dL (70-110)
[2022-10-30 20:52] LABS: Glucose,Whole Blood 203 mg/dL (70-110)
[2022-10-30] MEDS: ONDANSETRON 4 MG/2 ML VIAL IVP PRN (22:26)
[2022-10-31] MEDS: metroNIDAZOLE-NS PMX 500 MG in SALINE 1 100ML.BAG IVPB SCH ×3 (05:34→18:14)
[2022-10-31 07:22] LABS: Glucose,Whole Blood 158 mg/dL (70-110)
[2022-10-31] MEDS: ALVIMOPAN 12 MG CAPSULE PO SCH ×2 (07:33→20:45)
[2022-10-31] MEDS: HEPARIN SODIUM,PORCINE/PF 5,000 UNIT/0.5 ML SYRINGE SQ SCH ×2 (07:33→20:45)
[2022-10-31] MEDS: lisinopriL 20 MG TAB PO SCH (07:34)
[2022-10-31] MEDS: GABAPENTIN 300 MG CAP PO SCH (07:34)
[2022-10-31] MEDS: LINAGLIPTIN 5 MG TABLET PO SCH (07:34)
[2022-10-31] MEDS: TAMSULOSIN 0.4 MG CAP.ER.24H PO SCH (07:34)
[2022-10-31] MEDS: SIMETHICONE 40 MG/0.6 ML DROPS 2,000 MG/30 ML BOTTLE PO SCH ×4 (07:34→20:46)
[2022-10-31] MEDS: amLODIPine 5 MG TAB PO SCH (07:34)
[2022-10-31] MEDS: ATORVASTATIN 20 MG TAB PO SCH (07:34)
[2022-10-31] MEDS: INSULIN ASPART (NovoLOG) 100 UNIT/ML VIAL SQ SCH ×4 (07:56→20:16)
[2022-10-31] MEDS: D5-0.45% NACL WITH KCL 20MEQ/L 1,000 ML IV SCH ×3 (08:34→22:40)
[2022-10-31] MEDS: fentaNYL PCA 500 MCG/50 ML BAG IV PRN (08:36)
[2022-10-31] MEDS: ONDANSETRON 4 MG/2 ML VIAL IVP PRN (08:41)
[2022-10-31 09:44] LABS: Basophils # (A) 0.03 X 10*3/uL (0.00-0.10); Basophils % (A) 0.4 %; Eosinophils # (A) 0.07 X 10*3/uL (0.04-0.35); Eosinophils % (A) 0.9 %; HCT 39.1 % (39.6-50.0); HGB 12.2 g/dL (13.0-17.0); Immature Grans, Automated 0.4 %; Lymphocytes # (A) 1.34 X 10*3/uL (0.90-5.00); Lymphocytes % (A) 17.5 %; MCH 28.8 pg (27.0-32.0); MCHC 31.2 g/dL (32.0-37.0); MCV 92.4 fL (80.0-97.0); Mean Platelet Volume 11.2 fL (9.5-12.2); Monocytes # (A) 0.67 X 10*3/uL (0.20-1.00); Monocytes % (A) 8.7 %; NRBC Per 100 WBC 0 /100 WBCS (0.0-0.0); Neutrophils # (A) 5.53 X 10*3/uL (1.80-7.70); Neutrophils % (A) 72.1 %; Platelet Count 170 X 10*3/uL (140-440); RBC 4.23 X 10*6/uL (4.40-5.60); WBC 7.67 X 10*3/uL (4.50-10.00)
--- NOTE | 2022-10-31 10:36 | P.PN ---
Subjective Progress Note Date: 10/31/22 Principal diagnosis: s/p bowel surgery Hospital Course: Patient is a 77-year-old male with history of recently diagnosed colon cancer, hypertension, dyslipidemia, diabetes presenting for elective colon surgery. He is status post ileocolectomy and right hemicolectomy. [facility] physicians has been consulted for medical management. Currently on clear liquids. Subjective: Patient seen and examined at bedside. No acute events overnight. He denies any chest pain, shortness of breath, palpitations, lightheadedness, urinary complaints. He had his White catheter removed yesterday. He has not passed any gas at the moment, complains of some mild left-sided abdominal pain around the incision site. He is able to tolerate oral intake. He will get out of bed today. Pertinent positives and negatives as discussed above, a complete review of systems was performed and all other systems are negative. Vitals Signs Reviewed. General: nontoxic, no distress, appears at stated age Derm: warm, dry Head: atraumatic, normocephalic, symmetric Eyes: EOMI, no lid lag, anicteric sclera, pupils equal round reactive to light ENT: Nose and ears atraumatic Neck: No thyromegaly, supple Mouth: no lip lesion, mucus membranes moist Cardiovascular: S1S2 reg, no murmur, no edema Lungs: clear to auscultation bilateral, no rhonchi, no rales, no wheeze, no accessory muscle use Abdominal: soft, slightly tender to palpation, no guarding, no appreciable organomegaly, his abdominal dressing, clean, dry, intact Ext: no gross muscle atrophy, muscle strength muscle strength 5 out of 5 in all 4 extremities, no contractures Neuro: CN II-XII grossly intact Psych: Alert, oriented, appropriate affect Assessment and Plan: Colon cancer Status post resection -DVT prophylaxis and pain management per surgery -Currently on clear liquids Chronic medical problems: Hypertension Dyslipidemia Diabetes , A1c 6.2- sliding scale insulin -Continue home medications -Blood sugars reviewed, continue current regimen Thank you for allowing us to participate in the care of this pleasant patient. Do not hesitate to contact us with questions. Someone can be reached from the [facility] hospitalist group all hours of the day at [phone] or via [employer]. Objective - Vital Signs Vital signs: Vital Signs Temp 97.9 F 10/31/22 05:00 Pulse 70 10/31/22 05:00 Resp 16 10/31/22 05:00 BP 126/70 10/31/22 05:00 Pulse Ox 95 10/31/22 08:05 FiO2 21 10/31/22 08:05 Intake & Output 10/30/22 10/31/22 10/31/22 18:59 06:59 18:59 Intake Total 1070 Output Total 600 910 Balance -600 160 Intake: Oral 1070 Output: Urine 600 910 Straight 460 Uretheral (White) 600 Other: Voiding Method Indwelling Catheter Toilet Urinal Urinal - Labs CBC & Chem 7: 10/31/22 05:33 10/30/22 05:22 Labs: Abnormal Lab Results - Last 24 Hours (Table) 10/30/22 10/30/22 10/30/22 Range/Units 05:22 05:22 12:04 RBC (4.40-5.60) X 10*6/uL Hgb (13.0-17.0) g/dL Hct (39.6-50.0) % MCHC (32.0-37.0) g/dL Carbon Dioxide 19.8 L (20.0-27.5) mmol/L Anion Gap 9.20 L (10.00-18.00) mmol/L BUN/Creatinine Ratio 9.36 L (12.00-20.00) Ratio Glucose 192 H (70-110) mg/dL POC Glucose (mg/dL) 218 H (70-110) mg/dL Hemoglobin A1c 6.2 H (0.0-6.0) % Calcium 8.2 L (8.7-10.3) mg/dL 10/30/22 10/30/22 10/31/22 Range/Units 17:11 20:38 05:33 RBC 4.23 L (4.40-5.60) X 10*6/uL Hgb 12.2 L (13.0-17.0) g/dL Hct 39.1 L (39.6-50.0) % MCHC 31.2 L (32.0-37.0) g/dL Carbon Dioxide (20.0-27.5) mmol/L Anion Gap (10.00-18.00) mmol/L BUN/Creatinine Ratio (12.00-20.00) Ratio Glucose (70-110) mg/dL POC Glucose (mg/dL) 221 H 203 H (70-110) mg/dL Hemoglobin A1c (0.0-6.0) % Calcium (8.7-10.3) mg/dL 10/31/22 Range/Units 07:20 RBC (4.40-5.60) X 10*6/uL Hgb (13.0-17.0) g/dL Hct (39.6-50.0) % MCHC (32.0-37.0) g/dL Carbon Dioxide (20.0-27.5) mmol/L Anion Gap (10.00-18.00) mmol/L BUN/Creatinine Ratio (12.00-20.00) Ratio Glucose (70-110) mg/dL POC Glucose (mg/dL) 158 H (70-110) mg/dL Hemoglobin A1c (0.0-6.0) % Calcium (8.7-10.3) mg/dL
--- NOTE | 2022-10-31 11:14 | P.PN ---
Progress Note - Text Progress Note Date: 10/31/22 Patient's postoperative day 2 from laparoscopic left. Patient's complaints of some left-sided abdominal pain. He also has some mild nausea. On exam vital signs are stable. Abdomen is soft. Incision sites are clean dry intact. Status post right colectomy Postoperative nausea with probable mild ileus. Patient will continue to receive supportive care.
[2022-10-31 11:37] LABS: Glucose,Whole Blood 146 mg/dL (70-110)
[2022-10-31 17:14] LABS: Glucose,Whole Blood 141 mg/dL (70-110)
[2022-10-31 20:12] LABS: Glucose,Whole Blood 147 mg/dL (70-110)
[2022-11-01] MEDS: metroNIDAZOLE-NS PMX 500 MG in SALINE 1 100ML.BAG IVPB SCH ×5 (00:22→23:48)
[2022-11-01] MEDS: D5-0.45% NACL WITH KCL 20MEQ/L 1,000 ML IV SCH ×3 (05:23→20:36)
[2022-11-01] MEDS: fentaNYL PCA 500 MCG/50 ML BAG IV PRN (06:10)
[2022-11-01 07:04] LABS: Glucose,Whole Blood 156 mg/dL (70-110)
[2022-11-01] MEDS: ACETAMINOPHEN TAB 500 MG TAB PO SCH ×4 (09:28→23:47)
[2022-11-01] MEDS: INSULIN ASPART (NovoLOG) 100 UNIT/ML VIAL SQ SCH ×4 (09:29→20:42)
[2022-11-01] MEDS: TAMSULOSIN 0.4 MG CAP.ER.24H PO SCH (09:29)
[2022-11-01] MEDS: amLODIPine 5 MG TAB PO SCH (09:29)
[2022-11-01] MEDS: GABAPENTIN 300 MG CAP PO SCH (09:29)
[2022-11-01] MEDS: lisinopriL 20 MG TAB PO SCH (09:29)
[2022-11-01] MEDS: ATORVASTATIN 20 MG TAB PO SCH (09:29)
[2022-11-01] MEDS: ALVIMOPAN 12 MG CAPSULE PO SCH (09:31)
[2022-11-01] MEDS: HEPARIN SODIUM,PORCINE/PF 5,000 UNIT/0.5 ML SYRINGE SQ SCH ×2 (09:31→20:33)
[2022-11-01] MEDS: LINAGLIPTIN 5 MG TABLET PO SCH (09:31)
[2022-11-01] MEDS: SIMETHICONE 40 MG/0.6 ML DROPS 2,000 MG/30 ML BOTTLE PO SCH ×4 (09:32→21:26)
[2022-11-01 11:11] LABS: Glucose,Whole Blood 116 mg/dL (70-110)
--- NOTE | 2022-11-01 11:32 | P.PN ---
Subjective Progress Note Date: 11/01/22 Principal diagnosis: s/p bowel surgery Hospital Course: Patient is a 77-year-old male with history of recently diagnosed colon cancer, hypertension, dyslipidemia, diabetes presenting for elective colon surgery. He is status post ileocolectomy and right hemicolectomy. [facility] has been consulted for medical management. Currently on clear liquids. Subjective: Patient seen and examined at bedside. No acute events overnight. He denies any chest pain, shortness of breath, palpitations, lightheadedness, urinary complaints. He had a bowel movement yesterday. Continues to tolerate clear liquids. He has minimal abdominal pain. Pertinent positives and negatives as discussed above, a complete review of systems was performed and all other systems are negative. Vitals Signs Reviewed. General: nontoxic, no distress, appears at stated age Derm: warm, dry Head: atraumatic, normocephalic, symmetric Eyes: EOMI, no lid lag, anicteric sclera, pupils equal round reactive to light ENT: Nose and ears atraumatic Neck: No thyromegaly, supple Mouth: no lip lesion, mucus membranes moist Cardiovascular: S1S2 reg, no murmur, no edema Lungs: clear to auscultation bilateral, no rhonchi, no rales, no wheeze, no accessory muscle use Abdominal: soft, slightly tender to palpation, no guarding, no appreciable organomegaly, his abdominal dressing, clean, dry, intact Ext: no gross muscle atrophy, muscle strength muscle strength 5 out of 5 in all 4 extremities, no contractures Neuro: CN II-XII grossly intact Psych: Alert, oriented, appropriate affect Assessment and Plan: Colon cancer Status post resection -DVT prophylaxis and pain management per surgery -Currently on clear liquids, consider advancing Chronic medical problems: Hypertension Dyslipidemia Diabetes , A1c 6.2- sliding scale insulin -Continue home medications -Blood sugars reviewed, continue current regimen Thank you for allowing us to participate in the care of this pleasant patient. Do not hesitate to contact us with questions. Someone can be reached from the [facility] hospitalist group all hours of the day at [phone] or via [email or web address]. Objective - Vital Signs Vital signs: Vital Signs Temp 98.1 F 11/01/22 04:00 Pulse 90 11/01/22 04:00 Resp 18 11/01/22 04:00 BP 146/81 11/01/22 04:00 Pulse Ox 95 11/01/22 07:48 FiO2 21 10/31/22 08:05 Intake & Output 10/31/22 11/01/22 11/01/22 18:59 06:59 18:59 Intake Total 2150 Output Total 1900 Balance -190 2150 Intake: Intake, IV Titration 1550 Amount D5-0.45% NaCl with KCl 1300 20Meq/l 1,000 ml @ 125 mls/hr IV .Q8H [facility] Rx#: [id number] ceFAZolin 2 gm In Sodium 50 Chloride 0.9% 50 ml @ 100 mls/hr IVPB Q8HR [facility] Rx# :[id number] metroNIDAZOLE-NS PMX 500 200 mg In Saline 1 100ml.bag @ 100 mls/hr IVPB Q6HR [facility] Rx#:[id number] Oral 600 Output: Urine 1900 Other: Voiding Method Urinal Urinal # Voids 4 # Bowel Movements 1 - Labs CBC & Chem 7: 10/31/22 05:33 10/30/22 05:22 Labs: Abnormal Lab Results - Last 24 Hours (Table) 10/31/22 10/31/22 10/31/22 Range/Units 11:35 17:12 20:10 POC Glucose (mg/dL) 146 H 141 H 147 H (70-110) mg/dL 11/01/22 11/01/22 Range/Units 07:02 11:09 POC Glucose (mg/dL) 156 H 116 H (70-110) mg/dL
[2022-11-01 12:49] VITALS: BMI 29.2
--- NOTE | 2022-11-01 14:34 | P.PN ---
Subjective Progress Note Date: 11/01/22 CHIEF COMPLAINT: Malignant colon polyp HISTORY OF PRESENT ILLNESS: Patient is postop day #3 status post Robot-assisted daVinci Xi laparoscopic ileocolectomy with right hemicolectomy for malignant colon polyp at ileocecal valve. Patient is sitting up at bedside chair. He reports that his pain is better than yesterday. He did have some nausea earlier. He is having flatus and did have a small bowel movement today. Afebrile. Labs from yesterday WBC is 7.67 Hgb 12.2 PHYSICAL EXAM: VITAL SIGNS: Reviewed GENERAL: Well-developed in no acute distress. HEENT: No sclera icterus. Extraocular movements grossly intact. Moist buccal mucosa. Head is atraumatic, normocephalic. Hears conversational speech. No nasal drainage. NECK: Supple without lymphadenopathy. CHEST: Non-labored respirations and equal bilateral excursions. CARDIOVASCULAR: Palpable 2+ radial pulses. ABDOMEN: Soft. Nondistended. Incision sites clean dry and intact. Abdominal binder in place MUSCULOSKELETAL: No clubbing or cyanosis. NEUROLOGIC: No focal or lateralizing signs. Cranial nerves II through XII grossly intact. PSYCH: Appropriate affect. Alert and oriented to person, place and time. SKIN: Well perfused. Good skin turgor. ASSESSMENT: 1. Malignant colon polyp at ileocecal valve status post Robot-assisted daVinci Xi laparoscopic ileocolectomy with right hemicolectomy 2. Hypertension 3. Diabetes mellitus 4. Hyperlipidemia PLAN: -Continue supportive care -Advance diet to full liquids -Encourage patient to ambulate -Encourage patient to use incentive spirometer -Tylenol added for pain control. Encouraged patient to decrease the use of METALLURGICAL TECHNICIAN pump -DVT prophylaxis subcu heparin Physician Stable Attendant note has been reviewed by physician. Signing provider agrees with the documented findings, assessment, and plan of care. Objective - Vital Signs Vital signs: Vital Signs Temp 97.7 F 11/01/22 11:29 Pulse 80 11/01/22 11:29 Resp 16 11/01/22 11:29 BP 125/77 11/01/22 11:29 Pulse Ox 96 11/01/22 11:29 FiO2 21 10/31/22 08:05 Intake & Output 10/31/22 11/01/22 11/01/22 18:59 06:59 18:59 Intake Total 2150 Output Total 1900 Balance -1900 2150 Weight 95 kg Intake: Intake, IV Titration 1550 Amount D5-0.45% NaCl with KCl 1300 20Meq/l 1,000 ml @ 125 mls/hr IV .Q8H [facility] Rx#: [id number] ceFAZolin 2 gm In Sodium 50 Chloride 0.9% 50 ml @ 100 mls/hr IVPB Q8HR [facility] Rx# :[id number] metroNIDAZOLE-NS PMX 500 200 mg In Saline 1 100ml.bag @ 100 mls/hr IVPB Q6HR [facility] Rx#:[id number] Oral 600 Output: Urine 1900 Other: Voiding Method Urinal Urinal Urinal # Voids 4 # Bowel Movements 1 - Labs CBC & Chem 7: 10/31/22 05:33 10/30/22 05:22 Labs: Abnormal Lab Results - Last 24 Hours (Table) 10/31/22 10/31/22 11/01/22 Range/Units 17:12 20:10 07:02 POC Glucose (mg/dL) 141 H 147 H 156 H (70-110) mg/dL 11/01/22 Range/Units 11:09 POC Glucose (mg/dL) 116 H (70-110) mg/dL
[2022-11-01] MEDS ORDERED: ePHEDrine 50 MG/ML 1 ML VIAL ONE (16:30)
[2022-11-01] MEDS ORDERED: LIDOCAINE 2% INJ 20 MG/ML (2 ML VIAL) ONE (16:30)
[2022-11-01] MEDS ORDERED: DEXAMETHASONE SOD PHOSPHATE 4 MG/ML 1 ML VIAL ONE (16:30)
[2022-11-01] MEDS ORDERED: GLYCOPYRROLATE 0.2 MG/ML 2 ML VIAL ONE (16:30)
[2022-11-01] MEDS ORDERED: SUCCINYLCHOLINE CHLORIDE 200 MG/10 ML VIAL IV ONE (16:30)
[2022-11-01] MEDS ORDERED: ROPIVACAINE 5 MG/ML 30 ML VIAL ONE (16:30)
[2022-11-01] MEDS ORDERED: HYDROmorphone (PF) 1 MG/ML ONE (16:30)
[2022-11-01] MEDS ORDERED: PROPOFOL 10 MG/ML 20 ML VIAL IV ONE (16:30)
[2022-11-01] MEDS ORDERED: fentaNYL (PF) 50 MCG/ML 2 ML AMP ONE (16:30)
[2022-11-01] MEDS ORDERED: ROCURONIUM 10 MG/ML (5 ML VIAL) IV ONE (16:30)
[2022-11-01] MEDS ORDERED: NEOSTIGMINE 1 MG/ML 10 ML VIAL ONE (16:30)
[2022-11-01 17:02] LABS: Glucose,Whole Blood 148 mg/dL (70-110)
[2022-11-01 20:38] LABS: Glucose,Whole Blood 126 mg/dL (70-110)
[2022-11-01 20:52] VITALS: RESP 18
[2022-11-02] MEDS: D5-0.45% NACL WITH KCL 20MEQ/L 1,000 ML IV SCH ×2 (05:52→12:49)
[2022-11-02] MEDS: metroNIDAZOLE-NS PMX 500 MG in SALINE 1 100ML.BAG IVPB SCH ×2 (05:54→12:20)
[2022-11-02] MEDS: ACETAMINOPHEN TAB 500 MG TAB PO SCH ×2 (05:54→12:19)
[2022-11-02 07:34] LABS: Glucose,Whole Blood 108 mg/dL (70-110)
[2022-11-02] MEDS: INSULIN ASPART (NovoLOG) 100 UNIT/ML VIAL SQ SCH ×2 (07:40→12:19)
[2022-11-02] MEDS: lisinopriL 20 MG TAB PO SCH (09:18)
[2022-11-02] MEDS: HEPARIN SODIUM,PORCINE/PF 5,000 UNIT/0.5 ML SYRINGE SQ SCH (09:18)
[2022-11-02] MEDS: amLODIPine 5 MG TAB PO SCH (09:18)
[2022-11-02] MEDS: ATORVASTATIN 20 MG TAB PO SCH (09:18)
[2022-11-02] MEDS: GABAPENTIN 300 MG CAP PO SCH (09:18)
[2022-11-02] MEDS: TAMSULOSIN 0.4 MG CAP.ER.24H PO SCH (09:18)
[2022-11-02] MEDS: SIMETHICONE 40 MG/0.6 ML DROPS 2,000 MG/30 ML BOTTLE PO SCH ×2 (09:20→12:50)
[2022-11-02] MEDS: LINAGLIPTIN 5 MG TABLET PO SCH (09:20)
--- NOTE | 2022-11-02 11:37 | P.PN ---
Subjective Progress Note Date: 11/02/22 Principal diagnosis: s/p bowel surgery Hospital Course: Patient is a 77-year-old male with history of recently diagnosed colon cancer, hypertension, dyslipidemia, diabetes presenting for elective colon surgery. He is status post ileocolectomy and right hemicolectomy. [facility] has been consulted for medical management. Currently on full liquids. Subjective: Patient seen and examined at bedside. No acute events overnight. He denies any chest pain, shortness of breath, palpitations, lightheadedness, urinary complaints. He tried oatmeal this morning. Claims that he has minimal left- sided abdominal pain around the incision site. He is still passing gas and having bowel movements. Pertinent positives and negatives as discussed above, a complete review of systems was performed and all other systems are negative. Vitals Signs Reviewed. General: nontoxic, no distress, appears at stated age Derm: warm, dry Head: atraumatic, normocephalic, symmetric Eyes: EOMI, no lid lag, anicteric sclera, pupils equal round reactive to light ENT: Nose and ears atraumatic Neck: No thyromegaly, supple Mouth: no lip lesion, mucus membranes moist Cardiovascular: S1S2 reg, no murmur, no edema Lungs: clear to auscultation bilateral, no rhonchi, no rales, no wheeze, no accessory muscle use Abdominal: soft, slightly tender to palpation, no guarding, no appreciable organomegaly, his abdominal dressing, clean, dry, intact Ext: no gross muscle atrophy, muscle strength muscle strength 5 out of 5 in all 4 extremities, no contractures Neuro: CN II-XII grossly intact Psych: Alert, oriented, appropriate affect Assessment and Plan: Colon cancer Status post resection -DVT prophylaxis and pain management per surgery -Currently on full liquids, advance as tolerated Chronic medical problems: Hypertension Dyslipidemia Diabetes , A1c 6.2- sliding scale insulin -Continue home medications -Blood sugars reviewed, continue current regimen Patient is medically optimized for discharge home. Thank you for allowing us to participate in the care of this pleasant patient. Do not hesitate to contact us with questions. Someone can be reached from the [facility] hospitalist group all hours of the day at [phone] or via perfect serve. Objective - Vital Signs Vital signs: Vital Signs Temp 97.8 F 11/02/22 04:09 Pulse 76 11/02/22 09:17 Resp 18 12/13/22 04:09 BP 135/78 11/02/22 09:17 Pulse Ox 96 11/02/22 07:27 FiO2 21 10/31/22 08:05 Intake & Output 11/01/22 11/02/22 11/02/22 18:59 06:59 18:59 Intake Total 1650 Output Total 1000 Balance 650 Weight 95 kg Intake: Intake, IV Titration 1410 Amount D5-0.45% NaCl with KCl 1160 20Meq/l 1,000 ml @ 125 mls/hr IV .Q8H [facility] Rx#: [id number] ceFAZolin 2 gm In Sodium 50 Chloride 0.9% 50 ml @ 100 mls/hr IVPB Q8HR [facility] Rx# :[id number] metroNIDAZOLE-NS PMX 500 200 mg In Saline 1 100ml.bag @ 100 mls/hr IVPB Q6HR [facility] Rx#:[id number] Oral 240 Output: Urine 1000 Other: Voiding Method Urinal Toilet Urinal # Voids 1 - Labs CBC & Chem 7: 10/31/22 05:33 10/30/22 05:22 Labs: Abnormal Lab Results - Last 24 Hours (Table) 11/01/22 11/01/22 Range/Units 17:01 20:19 POC Glucose (mg/dL) 148 H 126 H (70-110) mg/dL
[2022-11-02 11:40] LABS: Glucose,Whole Blood 104 mg/dL (70-110)
[2022-11-02 11:46] VITALS: BP 147/77; PULSE 79; TEMP 98.3
--- NOTE | 2022-11-02 15:31 | P.DS ---
Providers Date of admission: 10/28/22 09:50 Expected date of discharge: 11/02/22 Attending physician: Tamra Fox Consults: 10/29/22 20:30 Consult Physician Routine Consulting Provider: Yvette Odonnell Consult Reason/Comments: Medical management Do you want consulting provider notified?: Yes Primary care physician: Irving Estevez MD Hospital Course: Discharge diagnosis 1. Malignant colon polyp at ileocecal valve status post Robot-assisted daVinci Xi laparoscopic ileocolectomy with right hemicolectomy 2. Hypertension 3. Diabetes mellitus 4. Hyperlipidemia Hospital course The patient is a 77-year-old male with personal history of malignant colorectal polyp on the ileocecal valve. Patient is status post Robot-assisted daVinci Xi laparoscopic ileocolectomy with right hemicolectomy. Patient is tolerating diet. His pain is controlled. He does report pain after eating. He is having bowel movements and flatus. Has been up and ambulating. Afebrile. Patient is stable for discharge. Physician Paraprofessional Aide note has been reviewed by physician. Signing provider agrees with the documented findings, assessment, and plan of care. Patient Condition at Discharge: Stable Plan - Discharge Summary Discharge Rx Participant: No New Discharge Prescriptions: New Simethicone 40 mg/0.6 ml Drops [Mylicon Drops] 80 mg PO QID ml Acetaminophen Tab [Tylenol] 1,000 mg PO Q6HR PRN #30 tablet PRN Reason: Pain Continue Atorvastatin [Lipitor] 20 mg PO DAILY Gabapentin 600 mg PO DAILY sitaGLIPtin [Januvia] 100 mg PO DAILY lisinopriL 40 mg PO DAILY amLODIPine [Norvasc] 5 mg PO DAILY Discontinued Cholecalciferol [Vitamin D3 (25 Mcg = 1000 Iu)] 50 mcg PO DAILY Black Srivastava 1,000 mg PO DAILY Gluc/Chond/MSM/D3/Hyal/Ramy Bor [Move Free Plus MSM-Vit D3 Tab] 1 tab PO DAILY Celecoxib [CeleBREX] 200 mg PO DAILY Turmeric Root Extract [Turmeric] 1,000 mg PO DAILY Discharge Medication List Atorvastatin [Lipitor] 20 mg PO DAILY 08/23/22 [History] Gabapentin 600 mg PO DAILY 08/23/22 [History] amLODIPine [Norvasc] 5 mg PO DAILY 08/23/22 [History] lisinopriL 40 mg PO DAILY 08/23/22 [History] sitaGLIPtin [Januvia] 100 mg PO DAILY 08/23/22 [History] Acetaminophen Tab [Tylenol] 1,000 mg PO Q6HR PRN #30 tablet 11/02/22 [Rx] Simethicone 40 mg/0.6 ml Drops [Mylicon Drops] 80 mg PO QID ml 11/02/22 [Rx] Follow up Appointment(s)/Referral(s): Tamra Fox MD [STAFF PHYSICIAN] - 11/09/22 Activity/Diet/Wound Care/Special Instructions: Wear abdominal binder at all times for comfort. No lifting over 4 pounds in 4 weeks You May shower. No bath tub soaks for two weeks Use Tylenol scheduled for the next 24-48 hours for best pain relief. Use ice along incisions for the today to prevent swelling. Continue full liquid diet and advance as tolerated at home Discharge Disposition: HOME SELF-CARE
== END 2022-11-02 16:23 | disposition home or self-care (01) | DRG 330 ==
LOC: ORWHC2ENDO 09:49 → 5NMEDONC 09:50 → ORWHC2ENDO 09:50 → 5NMEDONC 11:15
PROVIDERS: ADMIT Surgery Plastic and Reconstructive Surgery; ATTEND Surgery Plastic and Reconstructive Surgery
PROC: 0DBH8ZX Excision of Cecum, Via Natural or Artificial Opening Endoscopic, Diagnostic (ICD-10-PCS; 2022-10-28 10:55)
PROC: 8E0W4CZ Robotic Assisted Procedure of Trunk Region, Percutaneous Endoscopic Approach (ICD-10-PCS; principal; 2022-10-29 14:25)
PROC: 0DTF4ZZ Resection of Right Large Intestine, Percutaneous Endoscopic Approach (ICD-10-PCS; principal; 2022-10-29 14:25)
DX: C18.2 Malignant neoplasm of ascending colon (principal); K56.7 Ileus, unspecified; E11.9 Type 2 diabetes mellitus without complications; E78.5 Hyperlipidemia, unspecified; I10 Essential (primary) hypertension; K64.4 Residual hemorrhoidal skin tags; K64.8 Other hemorrhoids; R35.0 Frequency of micturition; M19.90 Unspecified osteoarthritis, unspecified site; Z79.84 Long term (current) use of oral hypoglycemic drugs; Z79.1 Long term (current) use of non-steroidal anti-inflammatories (NSAID); Z79.899 Other long term (current) drug therapy; Z96.651 Presence of right artificial knee joint; Z87.891 Personal history of nicotine dependence; Z88.1 Allergy status to other antibiotic agents
CPT/HCPCS: 45381; 45385; 74177; 80053; 85025; 85610; 88305; 94760

== ENCOUNTER → 2022-12-22 | Outpatient (CLI) | payer MEDICARE, BC ==
--- NOTE | 2022-12-22 12:16 | NM ---
EXAMINATION TYPE: NM bone 3 phase DATE OF EXAM: 12/22/2022 COMPARISON: NONE HISTORY: Knee pain Triple phase bone scintigraphy was performed following the injection of 23.6 mCi Tc 99m MDP. Immedia te images and 4 hours post injection images acquired. FINDINGS: There is intense increased radiotracer accumulation involving the medial joint space of the left knee . There is evidence of prior right-sided total knee arthroplasty with mild femoral component uptake s een. Whole-body images were also submitted which demonstrate degenerative uptake about the thoracolum bar spine and bilateral wrists as well as the great toes. IMPRESSION: 1 advanced degenerative change left knee. 2. Mild increased uptake about the femoral component of the total knee arthroplasty right knee.
== END | disposition home or self-care (01) ==
LOC: RADNMMAIN 07:10
PROVIDERS: ATTEND Orthopaedic Surgery
DX: T84.84XD Pain due to internal orthopedic prosthetic devices, implants and grafts, subsequent encounter (principal); M17.12 Unilateral primary osteoarthritis, left knee; Z96.651 Presence of right artificial knee joint
CPT/HCPCS: 78315; A9503

== ENCOUNTER → 2023-02-14 | Outpatient (CLI) | payer MEDICARE, BC ==
[2023-02-14 15:47] LABS: INR 0.9 (<1.2); Partial Thromboplastin Time 22.1 sec (22.0-30.0); Prothrombin Time 9.8 sec (9.0-12.0)
[2023-02-14 22:23] LABS: HCT 42.3 % (39.6-50.0); HGB 13.3 g/dL (13.0-17.0); MCH 28.8 pg (27.0-32.0); MCHC 31.4 g/dL (32.0-37.0); MCV 91.6 fL (80.0-97.0); NRBC Per 100 WBC 0 /100 WBCS (0.0-0.0); Platelet Count 184 X 10*3/uL (140-440); RBC 4.62 X 10*6/uL (4.40-5.60); RDW 13.6 % (11.5-14.5)
[2023-02-14 22:47] LABS: Albumin 4.5 g/dL (3.8-4.9); Albumin/Globulin Ratio 1.83 (1.60-3.17); Anion Gap 11.6 mmol/L (10.00-18.00); BUN/Creat Ratio 22.11 Ratio (12.00-20.00); Blood Urea Nitrogen 24.1 mg/dL (9.0-27.0); Calcium 9.8 mg/dL (8.7-10.3); Carbon Dioxide 22.2 mmol/L (20.0-27.5); Globulin 2.5 g/dL (1.6-3.3); Non-African American GFR(CKD) 65.6 (60.0-200.0); Potassium 4.2 mmol/L (3.5-5.5); Total Bilirubin 0.4 mg/dL (0.30-1.20)
== END | disposition home or self-care (01) ==
LOC: LABPAT 13:47
PROVIDERS: ATTEND Orthopaedic Surgery
DX: Z01.818 Encounter for other preprocedural examination (principal); M17.12 Unilateral primary osteoarthritis, left knee
CPT/HCPCS: 80053; 83036; 85027; 85610; 85730; 87070; 93005

== ENCOUNTER → 2023-02-18 | Outpatient (CLI) | payer MEDICARE, BC ==
--- NOTE | 2023-02-18 15:47 | CT ---
EXAMINATION TYPE: CT left knee - [facility] Protocol DATE OF EXAM: 02/18/2023 COMPARISON: NONE HISTORY: Left knee pain/osteoarthritis. TINA KNEE. CT DLP: 800 mGycm. Automated Exposure Control for Dose Reduction was Utilized. TECHNIQUE: CT scan of the pelvis including left lower extremity performed without contrast. [facility] protocol. FINDINGS: Exam is for surgical planning and not for diagnostic purposes. Images of the pelvis and bilateral hip s show small fat-containing left inguinal hernia and moderate size fat-containing right inguinal [place] ia. Prostate gland is upper limits of normal in size. There are scattered pelvic phleboliths seen. Mi ld to moderate narrowing and spurring of both hip joints is present. Images of the left knee show moderate to severe narrowing endplate sclerosis and mild spurring at the medial tibiofemoral compartment. There is moderate narrowing and [id number] spurring of the pa tellofemoral compartment. There is moderate to large-sized suprapatellar joint effusion. Images of the bilateral ankles show no significant incidental finding. IMPRESSION: As above.
== END | disposition home or self-care (01) ==
LOC: RADCTMAIN 14:25
PROVIDERS: ATTEND Orthopaedic Surgery
DX: M17.12 Unilateral primary osteoarthritis, left knee (principal); M25.862 Other specified joint disorders, left knee; E11.9 Type 2 diabetes mellitus without complications; T84.84XD Pain due to internal orthopedic prosthetic devices, implants and grafts, subsequent encounter; T84.022D Instability of internal right knee prosthesis, subsequent encounter; M25.462 Effusion, left knee

== ENCOUNTER 2023-02-23 10:47 | Observation (INO) | payer MEDICARE, BC ==
[2023-02-22 09:00] VITALS: BMI 29.9
[~2023-02-23 10:47] MED LIST changes: +ACETAMINOPHEN TAB 500 MG TAB PO PRN; -Antibiotics per Pharmacy 1 EACH MISC MISCELLANE PRN; +DEXAMETHASONE SOD PHOSPHATE 10 MG/ML 1 ML VIAL IV PRN; +DEXAMETHASONE SOD PHOSPHATE 4 MG/ML 1 ML VIAL IV ONE; +DOCUSATE 100 MG CAP PO PRN; +FAMOTIDINE 20 MG/2 ML VIAL IVP PRN; +HYDROmorphone 0.5 MG/0.5 ML SYRINGE IVP PRN; +KETOROLAC 15 MG/ML 1 ML VIAL IVP PRN; +LIDOCAINE 1% (10MG/ML) FOR IV START INTRADERMA PRN; +ONDANSETRON 4 MG/2 ML VIAL IVP ONE; +ONDANSETRON 4 MG/2 ML VIAL IVP PRN; -PEG 3350 (420 GM/BTL) + LYTES 4,000 ML BOTTLE PO ONE; +TRANEXAMIC ACID IN NACL,ISO-OS 1,000 MG in SALINE 1 100ML.BAG IV PRN; +TRANEXAMIC ACID IN NACL,ISO-OS 1,000 MG in SALINE 1 100ML.BAG IVPB PRN; +oxyCODONE ER 10 MG TAB.ER.12H PO PRN
[2023-02-23] MEDS: LACTATED RINGERS 1,000 ML IV SCH ×3 (11:21→21:06)
[2023-02-23 11:50] LABS: Glucose,Whole Blood 95 mg/dL (70-110)
[2023-02-23] MEDS ORDERED: MIDAZOLAM 2 MG/2 ML VIAL IVP ONE (12:26)
[2023-02-23] MEDS: ROPIVACAINE/EPI/CLONIDINE/KET 50 ML SYRINGE MISCELLANE PRN ×2 (12:41→14:26)
[2023-02-23] MEDS ORDERED: DEXAMETHASONE SOD PHOSPHATE 4 MG/ML 1 ML VIAL ONE (12:41)
[2023-02-23] MEDS ORDERED: ROPIVACAINE 5 MG/ML 30 ML VIAL ONE (12:41)
[2023-02-23] MEDS ORDERED: PROPOFOL 10 MG/ML 20 ML VIAL IV ONE (12:41)
[2023-02-23] MEDS ORDERED: TRANEXAMIC ACID IN NACL,ISO-OS 1,000 MG/100 ML BAG ONE (12:41)
[2023-02-23] MEDS ORDERED: fentaNYL (PF) 50 MCG/ML 2 ML AMP ONE (12:41)
[2023-02-23] MEDS ORDERED: SODIUM CHLORIDE 0.9% (PF) 10 ML VIAL ONE (12:41)
[2023-02-23] MEDS ORDERED: MIDAZOLAM 2 MG/2 ML VIAL ONE (12:41)
[2023-02-23] MEDS ORDERED: PHENYLEPHRINE-0.9% NACL SYG 1,000 MCG/10 ML SYRINGE ONE (12:41)
--- NOTE | 2023-02-23 13:25 | P.ANPRN ---
Procedure Note - Anesthesia - Nerve Block Performed Left Adductor Canal Single Date of Procedure: 02/23/23 Procedure Start Time: 12:26 Procedure Stop Time: 12:30 Location of Patient: PreOp Indication: Acute Post-Operative Pain, Requested by Surgeon Sedation Type: Sedate with meaningful contact maintained Preparation: Sterile Prep Position: Supine Catheter: None Needle Types: Pajunk Needle Gauge: 20 Ultrasound used to visualize needle placement: Yes Ultrasound used to observe medication spread: Yes Injectate: 0.5% Ropivacaine (see comment for volume) (15mL) Blood Aspirated: No Pain Paresthesia on Injection Noted: No Resistance on Injection: Normal Image Stored and Saved: Yes Events: Uneventful and Well Tolerated Left iPack Single Date of Procedure: 02/23/23 Procedure Start Time: 12:30 Procedure Stop Time: 12:35 Location of Patient: PreOp Indication: Acute Post-Operative Pain, Requested by Surgeon Sedation Type: Sedate with meaningful contact maintained Preparation: Sterile Prep Position: Supine Needle Types: Pajunk Needle Gauge: 20 Ultrasound used to visualize needle placement: Yes Ultrasound used to observe medication spread: Yes Injectate: 0.5% Ropivacaine (see comment for volume) (15mL + 15mL NS) Blood Aspirated: No Pain Paresthesia on Injection Noted: No Resistance on Injection: Normal Image Stored and Saved: Yes Events: Uneventful and Well Tolerated
[2023-02-23] MEDS ORDERED: LACTATED RINGERS 1,000 ML IV ONE (14:46)
[2023-02-23] MEDS ORDERED: ONDANSETRON 4 MG/2 ML VIAL IVP PRN (15:14)
[2023-02-23] MEDS ORDERED: HYDROcodone/APAP 5-325MG 1 EACH TAB PO PRN (15:14)
[2023-02-23] MEDS ORDERED: HYDROmorphone 0.5 MG/0.5 ML SYRINGE IVP PRN ×2 (15:14)
[2023-02-23] MEDS ORDERED: NALOXONE 0.4 MG/ML 1 ML VIAL IV PRN (15:14)
[2023-02-23] MEDS ORDERED: hydrOXYzine pamoate 25 MG CAP PO PRN (15:14)
--- NOTE | 2023-02-23 15:19 | P.OP ---
Date of Procedure: 02/23/23 Preoperative Diagnosis: severe left knee osteoarthritis Postoperative Diagnosis: Same Procedure(s) Performed: Left total knee arthroplasty Implants: 1. [place] Triathlon CR Femur Size #7 2. [employer]se Triathlon [place] Tibial Base Size #7 3. [place] Triathlon CS poly Size #9 4. Nupur Triathlon all poly patella, Size #35 Anesthesia: regional, spinal Surgeon: Jono Norman Trolley Collector #1: Nasima Macias Estimated Blood Loss (ml): 100 IV fluids (ml): 1,200 Pathology: none sent Condition: stable Disposition: PACU Indications for Procedure: I met with the patient preoperatively in the office setting and discussed treatment of their symptomatic knee arthritis. They failed a long course of nonsurgical treatment and elected to proceed with an elective total knee replacement. I discussed the potential risks and complications at length and gave them ample time to ask questions. Risks discussed included: risks from anesthesia, superficial site surgical infection, acute and/or chronic peripros thetic joint infection, delayed wound healing, drainage, wound necrosis, instability, stiffness, stiffness requiring manipulation and/or revision surgery, damage to local blood vessels or nerves, aseptic loosening of the implants, extensor mechanism issues including disruption, patellar maltracking, avascular necrosis etc., continued or worsened knee pain, generalized dissatisfaction with surgical outcome, need for revision surgery, an inability to regain preinjury level of function, DVT, PE, other medical complications, and possibly loss of life or limb. The patient voiced their understanding that while these are the most common complications other less common complications are possible. They provided both their verbal and written consent to go forward with surgery. Description of Procedure: The patient was identified in preoperative holding and the correct operative extremity was verified and marked with a marker. I reviewed the consent form with the patient at length. All of their questions were answered. The patient was given a block by anesthesia. They were then brought back to the operating room. They were transferred onto the operating room table where a general anesthetic, preoperative antibiotics, and tranexamic acid were administered by anesthesia. A tourniquet was applied to the proximal aspect of the operative extremity. The contralateral extremity was padded under the heel and secured to the operating room table with a nonsterile blue towel and tape. The ipsilateral arm was carefully draped across the patient's chest and secured with a pillow and foam. A post was applied over the lateral aspect of the ipsilateral thigh and a bolster was placed under the ipsilateral foot. I verified that the operative extremity was stable and the knee was flexed to 90. The operative extremity was then placed in a leg saleh, nonsterile drapes were applied, and the extremity was prepped and draped sterilely in the standard sterile fashion. Prior to starting surgery timeout was performed identifying the correct patient, operative extremity, and procedure. The leg was then elevated, exsanguinated with an Esmarch bandage, and the tourniquet was inflated. An anterior midline incision was made sharply with a scalpel. Once I had dissected deep to the superficial fascial layer medial and lateral flaps were elevated. A medial parapatellar arthrotomy was created. Upon opening the knee joint there were diffuse arthritic changes in all 3 compartments. The anterior horn of the medial meniscus were sharply released and a medial release was performed around the posterior medial corner of the knee to facilitate retractor placement. The fat pad was excised with electrocautery. The patella was found to be severely arthritic and a provisional cut was made with a sagittal saw to facilitate mobilization of the extensor mechanism during the procedure. Remnants of the ACL and PCL were then excised from the notch. 4 mm pins were then placed within the incision in the medial distal femur and proximal tibia. Arrays were applied to the pins and I verified they were completely tightened. The knee was then registered with the [place] robot and manipulations in implant position were made to balance the knee and opitmize implant position. Using the Edison robotic saw all cuts were made in accordance with our plan. After all bony fragments had been removed the cuts were verified with the planar probe. The tibia was then subluxed forward and sized. The knee was brought into flexion and a lamina black top spreader machine operator was placed to allow removal of the meniscal remnants both medially and laterally as well as posterior osteophytes. Local anesthetic was then infiltrated around the joint capsule. Trial implants were then placed with in the knee. Range of motion and collateral ligament tension was then evaluated. Adjustments in implant size and position were then made accordingly. Once the knee was felt to be appropriately balanced the Edison pins were removed. The patella was then recut, sized, and punched. A trial patellar button was then placed. With the trial components in place, the patella tracked midline. The femur was then drilled and the trial component removed. The trial tibial component was then appropriately rotated, pinned, and prepared for the keel. All trial components were then removed from the knee. The knee was thoroughly irrigated with pulsatile lavage. Cement was prepared via vacuum mixing in a bowl on the back table. I then hand pressurized cement into the femur and tibia and placed the implants beginning with the tibial base tray and poly liner, femoral component, and finally the patellar button. All extruded cement was removed including from the pin sites. Once the cement had hardened the knee was evaluated one final time with the final polyethylene liner in place. The knee had full extension and flexion and felt stable to varus and valgus stress throughout the arc of motion. The tourniquet was released and with the tourniquet down the patella tracked midline. All bleeders were controlled with electrocautery. The knee was then soaked for 3 minutes with a dilute Betadine soak. The knee was thoroughly irrigated using 3 L of sterile saline and pulsatile lavage. The extensor mechanism was then reapproximated using pop off Vicryl sutures followed by a running barbed suture. The knee was then closed in layers with a 0 strata fix for the deep fascial layer, 2-0 strata fix for the superficial subcutaneous layer and Monocryl and Steri-Strips for the skin. A sterile dressing was applied. I verified that all instrument, sponge, and sharp counts were correct. The patient was then transferred off the operating room table, extubated, and brought to recovery having tolerated the procedure well. Nasima Macias PA-C was required as a skilled pediatric dental assistant due to the complexity of the procedure for patient positioning, draping, retraction, placement of hardware, and closure of wound. PLAN: The patient can weight-bear as tolerated on the operative extremity. DVT prophylaxis with aspirin 81 mg twice a day based on preoperative risk stratification. Follow-up in the office in 2 weeks for wound check and x-rays of the knee including an AP and lateral.
--- NOTE | 2023-02-23 15:35 | XR ---
EXAMINATION TYPE: XR knee limited LT DATE OF EXAM: 02/23/2023 CLINICAL HISTORY: Left knee pain and arthritis status post total knee replacement. TECHNIQUE: Portable AP and crosstable lateral views of the left knee are obtained immediately postop eratively. COMPARISON: CT left knee February 18, 2023 FINDINGS: Metallic hardware from total left knee arthroplasty is seen and appears satisfactory in al ignment and position. There is evidence of recent surgery with diffuse subcutaneous gas and soft tis jacki swelling noted. IMPRESSION: METALLIC HARDWARE FROM TOTAL LEFT KNEE ARTHROPLASTY IS SATISFACTORY IN ALIGNMENT.
[2023-02-23 17:33] LABS: Glucose,Whole Blood 120 mg/dL (70-110)
[2023-02-23 20:23] LABS: Glucose,Whole Blood 227 mg/dL (70-110)
[2023-02-23] MEDS: SENNOSIDES-DOCUSATE SODIUM 1 EACH TAB PO SCH (20:23)
[2023-02-23] MEDS: ASPIRIN 81 MG PO SCH (20:23)
[2023-02-23] MEDS: HYDROcodone/APAP 5-325MG 1 EACH TAB PO PRN (20:24)
[2023-02-23] MEDS: GABAPENTIN 300 MG CAP PO SCH (21:03)
[2023-02-23] MEDS: HYDROmorphone 0.5 MG/0.5 ML SYRINGE IVP PRN (23:18)
[2023-02-23 23:24] LABS: Glucose,Whole Blood 243 mg/dL (70-110)
[2023-02-24] MEDS ORDERED: INSULIN ASPART (NovoLOG) 100 UNIT/ML VIAL SQ ONE (01:34)
[2023-02-24] MEDS: HYDROcodone/APAP 5-325MG 1 EACH TAB PO PRN (01:48)
[2023-02-24] MEDS: LACTATED RINGERS 1,000 ML IV SCH ×4 (02:05→23:02)
--- NOTE | 2023-02-24 04:11 | P.CONS ---
History of Present Illness - Reason for Consult Consult date: 02/23/23 post op medical managment of DM - Chief Complaint left total knee replacement - History of Present Illness 78 year old male with DM and hypertension patient coming in for scheduled left total knee arthroplasty , tolerated procedure well, pain well controlled and tolerated, patient did not walk yet, he tolerated PO intake , denies any chest pain , trouble breathing, nausea or vomiting Review of Systems Pertinent positives as noted in HPI. All other systems were reviewed and are negative Past Medical History Past Medical History: Cancer, Diabetes Mellitus, Hearing Disorder / Deafness, Hyperlipidemia, Hypertension, Osteoarthritis (OA) Additional Past Medical History / Comment(s): Hx colon cancer 10/2022. Hx gout. Hx colon polyps. Hard of hearing. History of Any Multi-Drug Resistant Organisms: None Reported Past Surgical History: Adenoidectomy, Bowel Resection, Joint Replacement, Tonsillectomy Additional Past Surgical History / Comment(s): TOTAL RIGHT KNEE REPLACEMENT, NASAL SURGERY, FISSURE AND FISTULA SURGERY X2, CARPAL TUNNEL SURGERY X3, COLONOSCOPY. Past Anesthesia/Blood Transfusion Reactions: No Reported Reaction Smoking Status: Former smoker - Past Family History Brother(s) Family Medical History: Cancer Medications and Allergies Home Medications Medication Instructions Recorded Confirmed Type Atorvastatin [Lipitor] 20 mg PO QAM 08/23/22 02/23/23 History Gabapentin 600 mg PO HS 08/23/22 02/23/23 History amLODIPine [Norvasc] 5 mg PO QAM 08/23/22 02/23/23 History lisinopriL 40 mg PO QAM 08/23/22 02/23/23 History sitaGLIPtin [Januvia] 100 mg PO QAM 08/23/22 02/23/23 History Celecoxib [CeleBREX] 200 mg PO QAM 02/22/23 02/23/23 History Allergies Allergy/AdvReac Type Severity Reaction Status Date / Time tetracycline Allergy Unknown Unknown Verified 02/23/23 11:36 Childhood Physical Exam Vitals: Vital Signs Temp Pulse Pulse Pulse Resp BP BP 02/24/23 02:00 97.6 F 66 98/57 02/23/23 20:00 97.9 F 73 17 129/62 02/23/23 18:07 97.6 F 76 18 112/65 02/23/23 16:56 75 16 114/56 02/23/23 16:41 74 16 111/55 02/23/23 16:26 75 16 107/53 02/23/23 16:11 75 16 113/59 02/23/23 15:56 73 16 102/54 02/23/23 15:41 79 16 94/51 02/23/23 15:26 79 16 97/54 02/23/23 15:11 97.5 F L 84 16 95/53 02/23/23 12:35 63 18 122/56 02/23/23 11:20 97.0 F L 79 18 123/65 Pulse Ox 02/24/23 02:00 96 02/23/23 20:00 94 L 02/23/23 18:07 95 02/23/23 16:56 96 02/23/23 16:41 96 02/23/23 16:26 92 L 02/23/23 16:11 93 L 02/23/23 15:56 92 L 02/23/23 15:41 95 02/23/23 15:26 98 02/23/23 15:11 98 02/23/23 12:35 97 02/23/23 11:20 96 Intake and Output 02/23/23 02/23/23 02/24/23 14:59 22:59 06:59 Intake Total 1350 150 Output Total 100 550 Balance 1250 150 -550 Intake: IV 1350 150 Output: Urine 550 Estimated Blood Loss 100 Other: Voiding Method Urinal Weight 96.3 kg 96.3 kg Constitutional: No acute distress, conversant, pleasant Eyes: Anicteric sclerae, moist conjunctiva, Pupils equal round reactive to light ENMT: NC/AT Oropharynx clear, no erythema, or exudates Neck: Supple, no masses, or JVD No carotid bruits No thyromegaly Lungs: Clear to auscultation Clear to percussion Normal respiratory effort, no accessory muscle use Cardiovascular: Heart regular in rate and rhythm, No murmurs, gallops, or rubs No peripheral edema Abdominal: Soft Nontender, no guarding, rebound or rigidity Abdomen moving with respiration Normoactive bowel sounds No hepatomegaly, No splenomegaly No palpable mass No abdominal wall hernia noted Skin: Normal temperature, tone, texture, turgor No induration No subcutaneous nodules No rash, lesions No ulcers Extremities: No digital cyanosis No clubbing Pedal pulses intact and symmetrical Radial pulses intact and symmetrical No calf tenderness Psychiatric: Alert and oriented to person, place and time Appropriate affect fair judgement Neuro Muscles Strength 5/5 in all 4 extremities limited exam over the left lower extremity due to post op pain Sensation to light touch grossly present throughout Cranial nerves II-XII grossly intact Lymphatics: no palpable cervical or supraclavicular lymph nodes Results Labs: Abnormal Lab Results - Last 24 Hours (Table) 02/23/23 02/23/23 02/23/23 Range/Units 17:31 20:21 23:23 POC Glucose (mg/dL) 120 H 227 H 243 H (70-110) mg/dL Assessment and Plan Assessment: left total knee arthroplasty POD zero management per orthopedics chronic conditions hypertension , controlled resume amlodipion 5 mg po daily lisinopril 40 mg po daily atorvastatin 20 mg po qhs DM , with hyperglycemia post op insulin aspart 5 units and recheck sugar in 2 hours insulin sliding scale stable overall from a a medical standpoint check CBC and BMP in AM thank you for this consultation
[2023-02-24 04:51] LABS: Glucose,Whole Blood 130 mg/dL (70-110)
[2023-02-24] MEDS: HYDROmorphone 0.5 MG/0.5 ML SYRINGE IVP PRN ×3 (04:52→19:26)
[2023-02-24] MEDS: INSULIN ASPART (NovoLOG) 100 UNIT/ML VIAL SQ SCH ×4 (06:32→22:08)
[2023-02-24] MEDS: ASPIRIN 81 MG PO SCH ×2 (07:34→22:18)
[2023-02-24] MEDS: ATORVASTATIN 20 MG TAB PO SCH (07:34)
[2023-02-24] MEDS: MELOXICAM 7.5 MG TAB PO SCH (07:34)
[2023-02-24] MEDS: amLODIPine 5 MG TAB PO SCH (07:35)
[2023-02-24] MEDS: lisinopriL 20 MG TAB PO SCH (07:35)
[2023-02-24] MEDS ORDERED: HYDROcodone/APAP 7.5-325MG 1 EACH TAB PO PRN ×2 (07:52→07:53)
--- NOTE | 2023-02-24 08:51 | P.DS ---
Providers Date of admission: 02/24/23 07:53 Expected date of discharge: 02/24/23 Attending physician: Jono Norman Consults: 02/23/23 15:14 Consult Physician Routine Consulting Provider: Candis Hussein Consult Reason/Comments: medical management Do you want consulting provider notified?: Yes Primary care physician: Irving Estevez MD Hospital Course: This is a 78-year-old male who has been followed in our office by Dr. Norman for continued complaints of left knee pain due to left knee osteoarthritis. Treatment options were discussed, and patient elected to undergo a left total knee arthroplasty. Patient was seen pre-operatively by Dr. Sanaz Ocampo and cleared for surgery. Patient underwent a left total knee arthroplasty on 02/23/[address] Norman. The procedure was performed without complication or sequelae. The patient is doing fairly well postoperatively. Vital signs and labs are stable on postoperative day #1. Patient was examined bedside this morning with Dr. Norman. Patient states he is overall doing very well and the pain in his left knee is manageable. He has been ambulating with a walker with minimal assistance in the hallway. Patient has passed physical therapy this morning to return home. Patient is comfortable being discharged home today. Patient has no new complaints this morning. On examination, the patient is sitting up in bed in no apparent distress. He is alert and orientated 3. On inspection of the left knee, there is a clean, dry, intact Opsite surgical dressing in place. No bleeding or drainage to dressing. Patient has good strength and ROM of the left ankle and toes. Motor and sensory function is intact of the left lower extremity. The dorsalis pedis pulse is easily palpable, the left lower extremity is warm and well perfused with brisk capillary refill. Calf is soft and non-tender to palpation. Patient is discharged home with home health care today in good condition, pending medical clearance. Patient will follow-up with Dr. Norman in the office in 2 weeks. Please see med rec for accurate list of discharge medication. Plan - Discharge Summary Discharge Rx Participant: Yes New Discharge Prescriptions: New Aspirin 81 mg PO BID 30 Days #60 tab Docusate [Colace] 100 mg PO BID #60 capsule HYDROcodone/APAP 7.5-325MG [[place] 7.5-325] 1 - 2 tab PO Q6HR PRN 3 Days #32 tab PRN Reason: Pain Omeprazole 40 mg PO DAILY 30 Days #30 cap Diclofenac Sodium [Voltaren] 75 mg PO BID 30 Days #60 tab No Action Atorvastatin [Lipitor] 20 mg PO QAM Gabapentin 600 mg PO HS sitaGLIPtin [Januvia] 100 mg PO QAM lisinopriL 40 mg PO QAM amLODIPine [Norvasc] 5 mg PO QAM Celecoxib [CeleBREX] 200 mg PO QAM Discharge Medication List Atorvastatin [Lipitor] 20 mg PO QAM 08/23/22 [History] Gabapentin 600 mg PO HS 08/23/22 [History] amLODIPine [Norvasc] 5 mg PO QAM 08/23/22 [History] lisinopriL 40 mg PO QAM 08/23/22 [History] sitaGLIPtin [Januvia] 100 mg PO QAM 08/23/22 [History] Celecoxib [CeleBREX] 200 mg PO QAM 02/22/23 [History] Aspirin 81 mg PO BID 30 Days #60 tab 02/24/23 [Rx] Diclofenac Sodium [Voltaren] 75 mg PO BID 30 Days #60 tab 02/24/23 [Rx] Docusate [Colace] 100 mg PO BID #60 capsule 02/24/23 [Rx] HYDROcodone/APAP 7.5-325MG [[place] 7.5-325] 1 - 2 tab PO Q6HR PRN 3 Days #32 tab 02/24/23 [Rx] Omeprazole 40 mg PO DAILY 30 Days #30 cap 02/24/23 [Rx] Follow up Appointment(s)/Referral(s): Jono Norman MD [Medical Doctor] - 2 Weeks Activity/Diet/Wound Care/Special Instructions: Weight bear to tolerance on operative extremity with a walker. Keep operative dressing in place until follow-up in the office. Call the office if dressing becomes saturated or falls off. May shower over dressing. Take pain medications as prescribed. Take aspirin 81mg BID x 4 weeks for blood clot prevention. Follow-up in the office in two weeks at [facility]. Call the office with any questions or concerns, Discharge Disposition: HOME WITH HOME HEALTH SERVICES
--- NOTE | 2023-02-24 10:24 | P.PN ---
Subjective Progress Note Date: 02/24/23 Patient is under complaints today. Resting comfortably. Gen: In no apparent distress HEENT: normocephalic, atraumatic, good hearing acuity, moist mucous membranes Resp: good air exchange, breathing comfortably with no accessory muscle use CVS: good distal perfusion x 4, GI: soft, NTTP, ND : no SPT, no CVAT, miles catheter not present MSK: no pitting edema, no clubbing Neuro: non-focal, moving all extremities Assessment/plan: left total knee arthroplasty POD zero management per orthopedics chronic conditions hypertension , controlled resume amlodipion 5 mg po daily lisinopril 40 mg po daily atorvastatin 20 mg po qhs DM , with hyperglycemia post op insulin aspart 5 units and recheck sugar in 2 hours insulin sliding scale stable overall from a a medical standpoint , medically cleared for discharge, medication reconciliation completed thank you for this consultation Objective - Vital Signs Vital signs: Vital Signs Temp 98.0 F 02/24/23 08:00 Pulse 68 02/24/23 08:00 Resp 14 02/24/23 08:00 BP 90/45 02/24/23 08:00 Pulse Ox 96 02/24/23 02:00 FiO2 Intake & Output 02/23/23 02/24/23 02/24/23 18:59 06:59 18:59 Intake Total 1500 120 Output Total 100 550 Balance 1400 -550 120 Weight 96.3 kg Intake: IV 1500 Oral 120 Output: Urine 550 Estimated Blood Loss 100 Other: Voiding Method Urinal # Voids 1 1 - Labs Labs: Abnormal Lab Results - Last 24 Hours (Table) 02/23/23 02/23/23 02/23/23 Range/Units 17:31 20:21 23:23 POC Glucose (mg/dL) 120 H 227 H 243 H (70-110) mg/dL 02/24/23 Range/Units 04:50 POC Glucose (mg/dL) 130 H (70-110) mg/dL
[2023-02-24 11:03] LABS: Basophils # (A) 0.02 X 10*3/uL (0.00-0.10); Basophils % (A) 0.2 %; Eosinophils # (A) 0 X 10*3/uL (0.04-0.35); Eosinophils % (A) 0 %; HCT 37.4 % (39.6-50.0); HGB 11.8 g/dL (13.0-17.0); Immature Grans, Automated 0.5 %; Lymphocytes # (A) 1.22 X 10*3/uL (0.90-5.00); Lymphocytes % (A) 10.2 %; MCH 28.9 pg (27.0-32.0); MCHC 31.6 g/dL (32.0-37.0); MCV 91.4 fL (80.0-97.0); Mean Platelet Volume 10.6 fL (9.5-12.2); Monocytes # (A) 1.07 X 10*3/uL (0.20-1.00); NRBC Per 100 WBC 0 /100 WBCS (0.0-0.0); Neutrophils # (A) 9.55 X 10*3/uL (1.80-7.70); Neutrophils % (A) 80.1 %; Platelet Count 183 X 10*3/uL (140-440); RBC 4.09 X 10*6/uL (4.40-5.60); RDW 13.8 % (11.5-14.5); WBC 11.92 X 10*3/uL (4.50-10.00)
[2023-02-24 11:20] LABS: African American GFR (CKD) 67.7 (60.0-200.0); Anion Gap 11.5 mmol/L (10.00-18.00); BUN/Creat Ratio 24.33 Ratio (12.00-20.00); Blood Urea Nitrogen 29.2 mg/dL (9.0-27.0); Calcium 8.8 mg/dL (8.7-10.3); Carbon Dioxide 19.5 mmol/L (20.0-27.5); Non-African American GFR(CKD) 58.4 (60.0-200.0); Potassium 4.9 mmol/L (3.5-5.5)
[2023-02-24 11:25] LABS: Glucose,Whole Blood 160 mg/dL (70-110)
[2023-02-24] MEDS: oxyCODONE-APAP 5-325MG 1 EACH TAB PO PRN ×2 (16:04→21:28)
[2023-02-24 16:28] LABS: Glucose,Whole Blood 111 mg/dL (70-110)
[2023-02-24 21:27] LABS: Glucose,Whole Blood 111 mg/dL (70-110)
[2023-02-24] MEDS: SENNOSIDES-DOCUSATE SODIUM 1 EACH TAB PO SCH (22:14)
[2023-02-24] MEDS: GABAPENTIN 300 MG CAP PO SCH (22:18)
[2023-02-25] MEDS: oxyCODONE-APAP 5-325MG 1 EACH TAB PO PRN ×2 (02:50→09:03)
[2023-02-25] MEDS: LACTATED RINGERS 1,000 ML IV SCH ×2 (06:05)
[2023-02-25 06:20] LABS: Glucose,Whole Blood 112 mg/dL (70-110)
[2023-02-25] MEDS: INSULIN ASPART (NovoLOG) 100 UNIT/ML VIAL SQ SCH ×2 (06:20→11:37)
[2023-02-25] MEDS: ATORVASTATIN 20 MG TAB PO SCH (08:26)
[2023-02-25] MEDS: ASPIRIN 81 MG PO SCH (08:27)
[2023-02-25] MEDS: MELOXICAM 7.5 MG TAB PO SCH (08:27)
[2023-02-25] MEDS: lisinopriL 20 MG TAB PO SCH (08:27)
[2023-02-25] MEDS: amLODIPine 5 MG TAB PO SCH (08:27)
--- NOTE | 2023-02-25 10:43 | P.PN ---
Progress Note - Text Progress Note Date: 02/25/23 Patient was not seen on rounds today, chart reviewed. Patient is medically cleared for discharge, medication reconciliation was addressed. If there are further questions or concerns from the medical perspective, please reach out via perfect serve. Medicine will sign off for now.
[2023-02-25 11:17] LABS: Glucose,Whole Blood 102 mg/dL (70-110)
--- NOTE | 2023-02-25 11:22 | P.PN ---
Subjective Progress Note Date: 02/25/23 This patient is a 78-year-old male who is status-post left total knee arthroplasty on 02/23/23. Today is post-operative day #2. The patient examined bedside this morning with Dr. Norman. The patient states his pain is controlled on oral medication at this time. He has passed physical therapy to return home. He has no new complaints today. Objective - Vital Signs Vital signs: Vital Signs Temp 97.8 F 02/25/23 08:00 Pulse 91 02/25/23 08:00 Resp 14 02/25/23 08:00 BP 128/56 02/25/23 08:00 Pulse Ox 95 02/25/23 08:00 FiO2 Intake & Output 02/24/23 02/25/23 02/25/23 18:59 06:59 18:59 Intake Total 120 480 Balance 120 480 Intake: Oral 120 480 Other: Voiding Method Toilet # Voids 1 1 - Exam On examination, patient is sitting up in bed in no apparent distress. He is alert and oriented 3. On inspection of his left knee, there is a clean, dry, intact surgical dressing in place. No bleeding or drainage through the dressing. Motor and sensory function is intact of the left lower extremity. Left lower extremity warm and well perfused. Calf is nontender. - Labs CBC & Chem 7: 02/24/23 06:42 02/24/23 06:42 Labs: Abnormal Lab Results - Last 24 Hours (Table) 02/24/23 02/24/23 02/24/23 Range/Units 06:42 11:24 16:27 Carbon Dioxide 19.5 L (20.0-27.5) mmol/L BUN 29.2 H (9.0-27.0) mg/dL Est GFR (CKD-EPI)NonAf 58.4 L (60.0-200.0) BUN/Creatinine Ratio 24.33 H (12.00-20.00) Ratio Glucose 114 H (70-110) mg/dL POC Glucose (mg/dL) 160 H 111 H (70-110) mg/dL 02/24/23 02/25/23 Range/Units 21:25 06:19 Carbon Dioxide (20.0-27.5) mmol/L BUN (9.0-27.0) mg/dL Est GFR (CKD-EPI)NonAf (60.0-200.0) BUN/Creatinine Ratio (12.00-20.00) Ratio Glucose (70-110) mg/dL POC Glucose (mg/dL) 111 H 112 H (70-110) mg/dL Assessment and Plan Assessment: Status-post left total knee arthroplasty on 02/23/23. Postoperative day #2. Plan: - Patient will discharge this afternoon home with home health care. He was instructed to continue aspirin 81 mg twice a day 4 weeks for DVT prophylaxis. He may ambulate with a walker as tolerated. He was instructed to leave his surgical dressing in place until follow-up in the office. He should follow-up in the office at [facility] in 2 weeks.
[2023-02-25 14:40] VITALS: BP 145/70; PULSE 94; RESP 17; TEMP 98.1
== END 2023-02-25 15:39 | disposition home health service (06) ==
LOC: OR 10:47 → 4SSUR 17:04 → OR 02-24 07:53
PROVIDERS: ADMIT Orthopaedic Surgery; ATTEND Orthopaedic Surgery
DX: M17.12 Unilateral primary osteoarthritis, left knee (principal); E11.65 Type 2 diabetes mellitus with hyperglycemia; I11.0 Hypertensive heart disease with heart failure; I50.9 Heart failure, unspecified; E78.5 Hyperlipidemia, unspecified; K21.9 Gastro-esophageal reflux disease without esophagitis; H91.90 Unspecified hearing loss, unspecified ear; M10.9 Gout, unspecified; Z79.84 Long term (current) use of oral hypoglycemic drugs; Z88.1 Allergy status to other antibiotic agents; Z85.038 Personal history of other malignant neoplasm of large intestine; Z86.010 Personal history of colon polyps; Z87.11 Personal history of peptic ulcer disease; Z97.3 Presence of spectacles and contact lenses; Z96.651 Presence of right artificial knee joint; Z98.890 Other specified postprocedural states; Z87.891 Personal history of nicotine dependence; Z80.9 Family history of malignant neoplasm, unspecified; Z83.3 Family history of diabetes mellitus
CPT/HCPCS: 97116; 97161; 64447; 64999; 76942; 88305; 80048; 85025; 88311; 73560; 27447; G0378 ×2; C1776; C1713; C1751; J2250; J1100; J0690 ×2; J2405; J3010; J2795; J1885; J2370; J2704; J1170 ×2; 64448

== ENCOUNTER → 2023-05-13 | Day surgery (SDC) | payer MEDICARE, BC ==
[2023-05-11 15:55] VITALS: BMI 30.7
[~2023-05-13] MED LIST changes: +BUPIVACAINE (PF) 0.25% 30 ML VIAL SQ ONE; -DEXAMETHASONE SOD PHOSPHATE 10 MG/ML 1 ML VIAL IV PRN; -DEXAMETHASONE SOD PHOSPHATE 4 MG/ML 1 ML VIAL IV ONE; -DOCUSATE 100 MG CAP PO PRN; -FAMOTIDINE 20 MG/2 ML VIAL IVP PRN; +GLYCOPYRROLATE 0.2 MG/ML 2 ML VIAL ONE; +HEPARIN SODIUM,PORCINE/PF 5,000 UNIT/0.5 ML SYRINGE SQ PRN; -HYDROmorphone 0.5 MG/0.5 ML SYRINGE IVP PRN; +INDOCYANINE GREEN 25 MG VIAL IV ONE; +INDOCYANINE GREEN 25 MG VIAL IV STA; +KETOROLAC 15 MG/ML 1 ML VIAL IVP ONE; -KETOROLAC 15 MG/ML 1 ML VIAL IVP PRN; +LACTATED RINGERS 1,000 ML IV ONE; +LACTATED RINGERS 1,000 ML IV SCH; -LIDOCAINE 1% (10MG/ML) FOR IV START INTRADERMA PRN; +LIDOCAINE 2% INJ 20 MG/ML (2 ML VIAL) ONE; +MIDAZOLAM 2 MG/2 ML VIAL ONE; +NEOSTIGMINE 1 MG/ML 10 ML VIAL ONE; -ONDANSETRON 4 MG/2 ML VIAL IVP ONE; +PHENYLEPHRINE-0.9% NACL SYG 1,000 MCG/10 ML SYRINGE ONE; +PROPOFOL 10 MG/ML 20 ML VIAL IV ONE; +ROCURONIUM 10 MG/ML (5 ML VIAL) IV ONE; +SUCCINYLCHOLINE CHLORIDE 200 MG/10 ML VIAL IV ONE; +TAMSULOSIN 0.4 MG CAP.ER.24H PO STA; -TRANEXAMIC ACID IN NACL,ISO-OS 1,000 MG in SALINE 1 100ML.BAG IV PRN; -TRANEXAMIC ACID IN NACL,ISO-OS 1,000 MG in SALINE 1 100ML.BAG IVPB PRN; +fentaNYL (PF) 50 MCG/ML 2 ML AMP ONE; -oxyCODONE ER 10 MG TAB.ER.12H PO PRN
--- NOTE | 2023-05-13 08:02 | P.GSHP ---
History of Present Illness H&P Date: 05/13/23 CHIEF COMPLAINT: Cholecystitis HISTORY OF PRESENT ILLNESS: The patient is a 78-year-old male who presents with history of epigastric including right upper quadrant abdominal pain. He underwent diagnostic studies for the gallbladder. Separately his clinical picture was consistent with cholecystitis. Now he presents for surgical intervention. PAST MEDICAL HISTORY: Please see list PAST SURGICAL HISTORY: Please see list MEDICATIONS: Please see list ALLERGIES: Denies. SOCIAL HISTORY: No illicit drug use or recent tobacco use FAMILY HISTORY: Pertinent for gallbladder disease REVIEW OF ORGAN SYSTEMS: CONSTITUTIONAL: No reports of fevers or chills. HEENT: Denies any troubles with the vision or hearing. ENDOCRINE: No reports of hypothyroidism. No diabetes. RESPIRATORY: No recent pneumonias. CARDIOVASCULAR: Denies chest pain or palpitations GI: No blood in stools or constipation. MUSCULOSKELETAL: Has occasional joint pain including back pain. NEURO: No seizure disorders or headaches. No recent stroke. PSYCH: No depression or suicidal ideation. HEMATOLOGIC: No personal or family history of DVTs or pulmonary emboli. PHYSICAL EXAM: VITAL SIGNS: Afebrile vital signs stable GENERAL: Well-developed pleasant male in no acute distress. HEENT: No scleral icterus. Extraocular movements grossly intact. Moist buccal mucosa. NECK: Supple without lymphadenopathy. CHEST: Unlabored respirations. Equal bilateral excursions. CARDIOVASCULAR: Regular rate regular rhythm rhythm. Distal 2+ pulses. ABDOMEN: Soft, nondistended. MUSCULOSKELETAL: No clubbing, cyanosis, or edema. NEURO : No focal or lateralizing signs. Cranial nerves II-12 within normal limits. PSYCH: Alert and oriented to person, place and time. SKIN: Well perfused. Good skin turgor. ASSESSMENT: 1.Chronic cholecystitis PLAN: 1. Will need a robotic cholecystectomy possible open. Benefits and risks were described. 2. Heparin for DVT prophylaxis 5000 units. 3. Antibiotic prophylaxis. Past Medical History Past Medical History: Diabetes Mellitus, Hyperlipidemia, Hypertension, Osteoarthritis (OA) Additional Past Medical History / Comment(s): GOUT, HX COLON POLYPS, LOOSE STOOLS. History of Any Multi-Drug Resistant Organisms: None Reported Past Surgical History: Adenoidectomy, Joint Replacement, Tonsillectomy Additional Past Surgical History / Comment(s): BILATERAL TOTAL KNEE REPLACEMENTS, NASAL SURGERY, FISSURE AND FISTULA SURGERY X2, CARPAL TUNNEL SURGERY X3, COLONOSCOPY. Past Anesthesia/Blood Transfusion Reactions: No Reported Reaction Past Psychological History: Depression Additional Psychological History / Comment(s): PAST HX DEPRESSION. Smoking Status: Former smoker Past Alcohol Use History: Daily Additional Past Alcohol Use History / Comment(s): QUIT SMOKING 35 YRS AGO, SMOKED 1 PPD, STARTED SMOKING AT AGE 32. DRINKS 1-2 ALCOHOLIC DRINKS PER DAY. Past Drug Use History: None Reported - Past Family History Brother(s) Family Medical History: Cancer Medications and Allergies Home Medications Medication Instructions Recorded Confirmed Type Atorvastatin [Lipitor] 20 mg PO QAM 08/23/22 05/11/23 History Gabapentin 600 mg PO HS 08/23/22 05/11/23 History amLODIPine [Norvasc] 5 mg PO QAM 08/23/22 05/11/23 History lisinopriL 40 mg PO QAM 08/23/22 05/11/23 History sitaGLIPtin [Januvia] 100 mg PO QAM 08/23/22 05/11/23 History Celecoxib [CeleBREX] 200 mg PO DAILY 05/11/23 05/11/23 History Allergies Allergy/AdvReac Type Severity Reaction Status Date / Time tetracycline Allergy Unknown Unknown Verified 05/11/23 15:40 Childhood
[2023-05-13 10:26] VITALS: TEMP 97.6
[2023-05-13 10:43] LABS: Glucose,Whole Blood 102 mg/dL (70-110)
[2023-05-13 11:48] LABS: ALT 22 U/L (4-49); AST 26 U/L (17-59); African American GFR (CKD) 82 (>60 ml/min/1.73 sqM); Albumin 3.9 g/dL (3.5-5.0); Alkaline Phosphatase 62 U/L (38-126); Anion Gap 8 mmol/L; Blood Urea Nitrogen 25 mg/dL (9-20); Calcium 9.2 mg/dL (8.4-10.2); Carbon Dioxide 23 mmol/L (22-30); Chloride 107 mmol/L (98-107); Glucose 112 mg/dL (74-99); Non-African American GFR(CKD) 71 (>60 ml/min/1.73 sqM); Potassium 4.8 mmol/L (3.5-5.1); Sodium 138 mmol/L (137-145); Total Bilirubin 0.7 mg/dL (0.2-1.3); Total Protein 6.7 g/dL (6.3-8.2)
[2023-05-13 12:27] LABS: Basophils % (A) 1 %; Eosinophils # (A) 0.3 k/uL (0-0.7); Eosinophils % (A) 5 %; HCT 41.5 % (39.0-53.0); HGB 13.8 gm/dL (13.0-17.5); Lymphocytes # (A) 1.4 k/uL (1.0-4.8); Lymphocytes % (A) 26 %; MCH 29.9 pg (25.0-35.0); MCHC 33.3 g/dL (31.0-37.0); MCV 89.8 fL (80.0-100.0); Mean Platelet Volume 10.2; Monocytes # (A) 0.5 k/uL (0-1.0); Monocytes % (A) 9 %; Neutrophils % (A) 58 %; Platelet Count 198 k/uL (150-450); RBC 4.63 m/uL (4.30-5.90); RDW 13.4 % (11.5-15.5); WBC 5.2 k/uL (3.8-10.6)
[2023-05-13] MEDS: HYDROmorphone 0.5 MG/0.5 ML SYRINGE IVP PRN ×2 (13:38→13:45)
--- NOTE | 2023-05-13 13:47 | P.OP ---
Date of Procedure: 05/13/23 Description of Procedure: SURGEON: TAMRA FOX MD PREOPERATIVE DIAGNOSES: 1. Chronic cholecystitis POSTOPERATIVE DIAGNOSES: 1. Chronic cholecystitis OPERATION: Robotic-assisted da Sean Xi laparoscopic cholecystectomy, multiport with FIREFLY ESTIMATED BLOOD LOSS: 5 mL. SPECIMENS REMOVED: Gallbladder. COMPLICATIONS: None. OPERATIVE FINDINGS: 1. Multiple lobes of the right liver 2. Intrahepatic gallbladder INDICATIONS: The patient is a 78-year-old male who presents with symptomatic gallstones. Robotic assisted laparoscopic approach was described. Benefits and risks of the procedure including but not limited to bleeding, infection, injury to the biliary tree was described. Informed consent was obtained. DESCRIPTION OF PROCEDURE: Patient was brought to the operating room, placed in supine position. After general induction, the abdomen had been prepped and draped in standard sterile fashion. The robotic da Sean XI system was primed. After a timeout protocol was performed, the patient had been prepped and draped in standard sterile fashion. The patient was injected with indocyanine green. A 5 mm 0 degrees laparoscopic trocar entry was performed along the left upper quadrant. The abdomen insufflated to 15 mmHg pressure which was tolerated well. Diagnostic laparoscopy demonstrated no injury to bowel viscera or mesentery. The liver surface was unremarkable. Next, two 8 mm robotic ports were placed along the right upper abdomen. The camera 8-mm port was maintained along the epigastrium. Another 8 mm port was placed along the left upper abdominal wall after exchanging the 5 mm port. Please note that the ports were placed at least 10 to 15 cm away from the target anatomy of the gallbladder. The robot was docked along the left lateral abdomen. The patient was repositioned in reverse Trendelenburg position. Using a grasper for arm 3, a grasper for arm 4, including hook cautery for arm 1, the robotic system was docked and primed as described. Instruments were interchanged by the anesthesia assistant including hook cautery, Bovie cautery and clip appliers. I had sat at the console. The gallbladder was scarred with peritoneal adhesions. Lysis of adhesions was performed to free the gallbladder from the surrounding tissues. Next attention was brought to the infundibulum and cystic structures. The infundibulum and cystic duct were dissected free from surrounding tissues. The cystic duct was isolated. FIREFLY was used to identify the cystic artery and cystic structures. A critical view of safety was obtained. Large PLASTIC clips were used throughout the entire case. Using a clip central office worker, 2 clips were placed at the junction of the infundibulum and cystic duct. The cystic duct was divided between clips. Next, the cystic artery was similarly clipped and cauterized. Electro-Bovie cautery was used to remove the gallbladder from the hepatic fossa. Hemostasis was checked and found to be adequate. The robot was undocked. I re-scrubbed into the case. Using a 10 mm Endo Catch bag via the left upper quadrant incision, the specimen was removed from the abdominal cavity. All pneumoperitoneum instruments were evacuated from the abdominal cavity. The incisions were reapproximated using 4-0 Monocryl in an interrupted subcuticular fashion. Fascial defects were less than 8 mm in size. Please note along the trocar sites, local anesthetic was placed as a field block prior to insertion of all instruments. Liquid glue was applied to the skin. At the end of the procedure needle, sponge, and instrument count had been verified correct by the surgical assistant. The patient was transferred to postanesthesia care unit in stable condition. Intraoperative films were shared with the patient's family. Plan - Discharge Summary Discharge Rx Participant: Yes New Discharge Prescriptions: New Simethicone [Gas-X] 125 mg PO AC-TID PRN #20 capsule PRN Reason: Pain Acetaminophen Tab [Tylenol Tab] 1,000 mg PO Q6HR PRN #30 tablet PRN Reason: Pain Continue Atorvastatin [Lipitor] 20 mg PO QAM Gabapentin 600 mg PO HS sitaGLIPtin [Januvia] 100 mg PO QAM lisinopriL 40 mg PO QAM amLODIPine [Norvasc] 5 mg PO QAM Celecoxib [CeleBREX] 200 mg PO DAILY Discharge Medication List Atorvastatin [Lipitor] 20 mg PO QAM 08/23/22 [History] Gabapentin 600 mg PO HS 08/23/22 [History] amLODIPine [Norvasc] 5 mg PO QAM 08/23/22 [History] lisinopriL 40 mg PO QAM 08/23/22 [History] sitaGLIPtin [Januvia] 100 mg PO QAM 08/23/22 [History] Celecoxib [CeleBREX] 200 mg PO DAILY 05/11/23 [History] Acetaminophen Tab [Tylenol Tab] 1,000 mg PO Q6HR PRN #30 tablet 05/13/23 [Rx] Simethicone [Gas-X] 125 mg PO AC-TID PRN #20 capsule 05/13/23 [Rx] Follow up Appointment(s)/Referral(s): Tamra Fox MD [STAFF PHYSICIAN] - 05/17/23 (TELEHEALTH) Patient Instructions/Handouts: Laparoscopic Cholecystectomy (DC), *[facility]gery [facility] - Managing Your Pain After Surgery Without Opioids Activity/Diet/Wound Care/Special Instructions: TELEHEALTH - DR WILL CALL YOU BETWEEN 8 am to 8 pm Recommend low-fat diet for the next 2 days. No lifting over 10 pounds in 2 weeks until May 27. March shower. No bath tub soaks for two weeks until May 27. Diet as tolerated. Use Tylenol, simethicone and ibuprofen or Aleve scheduled for the next 24-48 hours for best pain relief. Use ice along incisions for today to prevent swelling. Discharge Disposition: HOME SELF-CARE
[2023-05-13 15:56] VITALS: BP 120/89; PULSE 76; RESP 17
--- NOTE | 2023-05-18 20:20 | P.PN ---
Progress Note - Text Progress Note Date: 05/18/23 Patient reports diarrhea. Contacted at home. Patient had pre-existing diarrhea prior to his cholecystectomy. Pathology report reviewed demonstrate chronic cholecystitis. Follow up telehealth in 1 week.
== END | disposition home or self-care (01) ==
LOC: OR 09:58
PROVIDERS: ATTEND Surgery Plastic and Reconstructive Surgery
DX: K81.1 Chronic cholecystitis (principal); Q44.1 Other congenital malformations of gallbladder; K66.0 Peritoneal adhesions (postprocedural) (postinfection); E11.9 Type 2 diabetes mellitus without complications; I10 Essential (primary) hypertension; E78.5 Hyperlipidemia, unspecified; M19.90 Unspecified osteoarthritis, unspecified site; M10.9 Gout, unspecified; F10.20 Alcohol dependence, uncomplicated; F32.A Depression, unspecified; G62.9 Polyneuropathy, unspecified; Z86.010 Personal history of colon polyps; Z98.890 Other specified postprocedural states; Z87.891 Personal history of nicotine dependence; Z79.1 Long term (current) use of non-steroidal anti-inflammatories (NSAID); Z79.84 Long term (current) use of oral hypoglycemic drugs; Z79.899 Other long term (current) drug therapy; Z83.79 Family history of other diseases of the digestive system; Z88.1 Allergy status to other antibiotic agents
CPT/HCPCS: 47563; C9776; S2900; 80053; 85025; 88304